=== PATIENT | female | born 1980 | race Caucasian/White ===

== ENCOUNTER 2017-04-21 08:09 | Emergency (ER) | payer BC, OTHER ==
[2017-04-21] MEDS ORDERED: Ketorolac Tromethamine 60 MG/2 ML VIAL ONE (09:19)
== END 2017-04-21 10:01 | disposition home or self-care (01) ==
LOC: ERS 08:09
DX: M25.511 Pain in right shoulder (principal); J45.909 Unspecified asthma, uncomplicated; F31.9 Bipolar disorder, unspecified; F41.9 Anxiety disorder, unspecified; F17.210 Nicotine dependence, cigarettes, uncomplicated; Z79.899 Other long term (current) drug therapy
CPT/HCPCS: 96372; J1885

== ENCOUNTER 2017-04-24 16:25 | Emergency (ER) | payer BC, OTHER ==
[2017-04-24] MEDS ORDERED: Ondansetron HCl/PF 4 MG/2 ML Vial ONE (16:56)
[2017-04-24 16:57] LABS: #Basophils 0.1 thou/uL (0.0-0.2); #Eosinphils 0.4 thou/uL (0.0-0.7); #Lymphocytes 2.2 thou/uL (1.20-3.40); #Monocytes 0.4 thou/uL (0.11-0.59); %Basophils 0.6 % (0.0-1.0); %Eosinophils 4.5 % (0.0-10.0); %Lymphocytes 24.1 % (21.0-51.0); %Monocytes 4.6 % (0.0-10.0); Hematocrit 44.1 % (36.0-47.0); Red Blood Cell (RBC) Count 4.62 mill/uL (4.20-5.40)
--- NOTE | 2017-04-24 17:17 | RAD ---
PORTABLE CHEST ONE VIEW: 04/24/17 at 4:25 p.m. HISTORY: Chest pain. FINDINGS: Comparison is made with the exam of 02/19/14. The heart size is normal. The lungs are expanded without focal areas of consolidation, pneumothorax or pleural effusions. IMPRESSION: No radiographic evidence of acute cardiopulmonary process. POS: [facility]
[2017-04-24 17:22] LABS: ALT (SGPT) 22 U/L (8-55); AST (SGOT) 19 U/L (5-34); Alkaline Phosphatase 82 U/L (40-150); Anion Gap 14 mmol/L (10-20); BUN (Urea Nitrogen) 16 mg/dL (7.0-18.7); Bilirubin, Total 0.3 mg/dL (0.2-1.2); CK (CPK) 45 U/L (29-168); Calc. Creatinine Clearance 0 mL/min (70-130); Calcium 9.4 mg/dL (7.8-10.44); Carbon Dioxide 21 mmol/L (22-29); Chloride 107 mmol/L (98-107); Estimated GFR-MDRD 65; Lipase 22 U/L (8-78); Troponin I Less than 0.010 ng/mL (< 0.028)
== END 2017-04-24 19:10 | disposition home or self-care (01) ==
LOC: ERS 16:25
DX: R07.89 Other chest pain (principal); F41.9 Anxiety disorder, unspecified; F31.9 Bipolar disorder, unspecified; F17.210 Nicotine dependence, cigarettes, uncomplicated; J45.909 Unspecified asthma, uncomplicated; Z79.51 Long term (current) use of inhaled steroids; Z79.52 Long term (current) use of systemic steroids; Z79.899 Other long term (current) drug therapy
CPT/HCPCS: 71010; 80053; 82550; 82553; 83690; 84484; 85025; 93005; 96374; J2405

== ENCOUNTER 2017-07-26 16:25 | Emergency (ER) | payer BC, OTHER ==
[2017-07-26 17:08] LABS: Bilirubin Negative (Negative); Blood, Urine Negative (Negative); Clarity TURBID (Clear); Glucose, Urine (Dipstick) Negative (Negative); Leukocyte Negative (Negative); Nitrite Negative (Negative); Protein, Urine (Dipstick) Negative (Neg-Trace); Specific Gravity, Urine 1.022 (1.002-1.036); Urobilinogen 0.2 mg/dL (0.2-1.0)
[2017-07-26 17:22] LABS: #Basophils 0.1 thou/uL (0.0-0.2); #Eosinphils 0.4 thou/uL (0.0-0.7); #Lymphocytes 2.2 thou/uL (1.20-3.40); #Monocytes 0.5 thou/uL (0.11-0.59); #Neutrophils 6.2 thou/uL (1.40-6.50); %Basophils 0.6 % (0.0-1.0); %Lymphocytes 23.6 % (21.0-51.0); %Monocytes 5.3 % (0.0-10.0); %Neutrophils 66.5 % (42.0-75.0); Hemoglobin 14.9 g/dL (12.0-16.0); Mean Corpuscular HGB CONC 34.7 g/dL (32.0-36.0); Mean Corpuscular Hemoglobin 33.3 pg (27.0-31.0); Mean Corpuscular Volume 95.9 fl (81.0-99.0); Mean Platelet Volume 8.5 fL (7.4-10.4); Platelet Count 178 thou/uL (130-400); Red Blood Cell (RBC) Count 4.48 mill/uL (4.20-5.40); White Blood Cell (WBC) Count 9.4 thou/uL (4.8-10.8)
[2017-07-26] MEDS ORDERED: ISOVUE-370 76%-LOCM 1 ML ONE (17:33)
[2017-07-26 17:47] LABS: ALT (SGPT) 17 U/L (8-55); AST (SGOT) 10 U/L (5-34); Albumin 4.2 g/dL (3.5-5.0); Alkaline Phosphatase 76 U/L (40-150); Anion Gap 12 mmol/L (10-20); BUN (Urea Nitrogen) 18 mg/dL (7.0-18.7); Bilirubin, Total 0.3 mg/dL (0.2-1.2); Calc. Creatinine Clearance 0 mL/min (70-130); Calcium 9.5 mg/dL (7.8-10.44); Carbon Dioxide 23 mmol/L (22-29); Chloride 106 mmol/L (98-107); Estimated GFR-MDRD 75; Globulin 2.7 g/dL (2.4-3.5); Glucose 91 mg/dL (70-105); Potassium 4.4 mmol/L (3.5-5.1); Protein, Total 6.9 g/dL (6.0-8.3); Sodium 137 mmol/L (136-145)
--- NOTE | 2017-07-26 20:59 | CT ---
CT ABDOMEN AND PELVIS WITH IV CONTRAST 07/26/17 HISTORY: Abdominal pain. Flank pain. Left worse than right. UTI symptoms. FINDINGS: comparison made with exam of 02/27/15. The lung bases are unremarkable. No calcified gallstones are seen. The spleen is mildly enlarged kip uring 13.7 cm in length. Surgical clip versus calcific density in the region of the left adrenal glan d is again seen. The spleen, pancreas, right adrenal gland and kidneys appear normal. No free air, fr ee fluid or lymphadenopathy is seen in the abdomen or pelvis. A normal appearing appendix is noted. A corpus luteal cyst is seen in the left kidney. The patient is post hysterectomy. Both ovaries are vi sualized. No acute osseous abnormalities are seen. There are vascular calcifications without evidence of aneurysmal dilatation or acute abdominal aorta. IMPRESSION: No acute process. POS: [facility]
== END 2017-07-26 19:58 | disposition home or self-care (01) ==
LOC: ERS 16:25
DX: M54.9 Dorsalgia, unspecified (principal); R10.32 Left lower quadrant pain; R11.2 Nausea with vomiting, unspecified; R19.7 Diarrhea, unspecified; F41.9 Anxiety disorder, unspecified; F31.9 Bipolar disorder, unspecified; F17.210 Nicotine dependence, cigarettes, uncomplicated
CPT/HCPCS: 36415; 74177; 80053; 81003; 83690; 85025

== ENCOUNTER 2017-08-10 13:25 | Emergency (ER) | payer BC, OTHER ==
[2017-08-10 13:50] LABS: #Eosinphils 0.3 thou/uL (0.0-0.7); #Lymphocytes 1.6 thou/uL (1.20-3.40); #Monocytes 0.3 thou/uL (0.11-0.59); #Neutrophils 4.1 thou/uL (1.40-6.50); %Basophils 0.5 % (0.0-1.0); %Eosinophils 4.7 % (0.0-10.0); %Lymphocytes 25.6 % (21.0-51.0); %Monocytes 4.7 % (0.0-10.0); %Neutrophils 64.4 % (42.0-75.0); Hemoglobin 15.1 g/dL (12.0-16.0); Mean Corpuscular HGB CONC 34.6 g/dL (32.0-36.0); Mean Corpuscular Hemoglobin 33.1 pg (27.0-31.0); Mean Corpuscular Volume 95.8 fl (81.0-99.0); Mean Platelet Volume 8.2 fL (7.4-10.4); Platelet Count 191 thou/uL (130-400); RBC Distribution Width 12.1 % (11.5-14.5); Red Blood Cell (RBC) Count 4.55 mill/uL (4.20-5.40); White Blood Cell (WBC) Count 6.3 thou/uL (4.8-10.8)
[2017-08-10] MEDS ORDERED: ISOVUE-370 76%-LOCM 1 ML ONE (14:03)
[2017-08-10 14:22] LABS: ALT (SGPT) 29 U/L (8-55); AST (SGOT) 14 U/L (5-34); Albumin 4.1 g/dL (3.5-5.0); Alkaline Phosphatase 68 U/L (40-150); Anion Gap 12 mmol/L (10-20); BUN (Urea Nitrogen) 8 mg/dL (7.0-18.7); Bilirubin, Total 0.4 mg/dL (0.2-1.2); Calc. Creatinine Clearance 0 mL/min (70-130); Calcium 9.5 mg/dL (7.8-10.44); Carbon Dioxide 21 mmol/L (22-29); Chloride 106 mmol/L (98-107); Estimated GFR-MDRD 67; Globulin 2.6 g/dL (2.4-3.5); Glucose 113 mg/dL (70-105); Lipase 16 U/L (8-78); Potassium 4.2 mmol/L (3.5-5.1); Protein, Total 6.7 g/dL (6.0-8.3); Sodium 135 mmol/L (136-145)
[2017-08-10 14:35] LABS: Bilirubin Negative (Negative); Blood, Urine Negative (Negative); Clarity CLEAR (Clear); Glucose, Urine (Dipstick) Negative (Negative); Leukocyte Negative (Negative); Nitrite Negative (Negative); Protein, Urine (Dipstick) Negative (Neg-Trace); Specific Gravity, Urine 1.007 (1.002-1.036); Urobilinogen 0.2 mg/dL (0.2-1.0)
[2017-08-10] MEDS ORDERED: Ondansetron HCl/PF 4 MG/2 ML Vial ONE (18:57)
--- NOTE | 2017-08-10 19:08 | CT ---
CT ABDOMEN AND PELVIS WITH IV CONTRAST 08/10/17 PROVIDED CLINICAL HISTORY: Abdominal pain. FINDINGS: Comparison is made with the study dated 07/26/17. The visualized lung bases are free of significant opacity. There is a trace amount of bilateral pleural fluid. The solid abdominal organs demonstrate an unremarkable CT appearance. There is mural thickening involving the right colon with surrounding mild fat stranding. The appendix appears normal. There is no bowel dilatation, additional inflammatory fat stranding, significant carmelita e fluid or free air apparent. The osseous structures demonstrate no concerning osteoblastic or osteolytic lesions. IMPRESSION: 1. Findings compatible with ascending/right sided colitis. 2. Trace bilateral pleural fluid. POS: [facility]
== END 2017-08-10 19:48 | disposition home or self-care (01) ==
LOC: ERS 13:25
DX: K52.9 Noninfective gastroenteritis and colitis, unspecified (principal); F41.9 Anxiety disorder, unspecified; F31.9 Bipolar disorder, unspecified; F17.210 Nicotine dependence, cigarettes, uncomplicated
CPT/HCPCS: 36415; 74177; 80053; 81003; 83690; 85025; 96361; 96372; 96374; J2405

== ENCOUNTER 2017-09-14 10:29 | Outpatient (CLI) | payer OTHER ==
--- NOTE | 2017-09-14 14:28 | ULT ---
COMPLETE ABDOMEN ULTRASOUND: INDICATIONS: Right-sided abdominal pain. COMPARISON: CT of the abdomen and pelvis, dated 08/10/2017. FINDINGS: The liver is mildly enlarged, measuring 18.7 cm in greatest longitudinal dimension. The spleen is al so mildly enlarged, measuring 14.2 cm. The spleen on the comparison CT measured up to 13.6 cm. The right hepatic lobe on the comparison examination, in a similar region, measured 19 cm. The pancreas is obscured by overlying bowel gas. The visualized portions of the head appear within n ormal limits. The common bile duct measured 3 mm. The gallbladder was normal appearing. No sonographic Rothman sign reported. The abdominal aorta was of a normal caliber. The visualized IVC was unremarkable. The right kidney measured 10 x 4.2 x 4.5 cm. The left kidney measured 10.8 x 4.4 x 4.8 cm. There is mild bilateral renal cortical thinning, with the cortex measuring up to 0.9 cm. No hydronephrosis i s evident. IMPRESSION: 1. Mild stable hepatosplenomegaly. 2. Mild bilateral renal cortical thinning, which may reflect sequela of underlying chronic medical r enal disease. 3. No additional acute sonographic abnormalities of the abdomen. POS: [facility]
== END 2017-09-14 10:30 | disposition home or self-care (01) ==
LOC: ULT 10:29
PROVIDERS: ATTEND Internal Medicine
DX: R10.31 Right lower quadrant pain (principal); R10.11 Right upper quadrant pain; R16.2 Hepatomegaly with splenomegaly, not elsewhere classified; N28.89 Other specified disorders of kidney and ureter
CPT/HCPCS: 76700

== ENCOUNTER 2017-09-24 10:35 | Outpatient (CLI) | payer OTHER ==
--- NOTE | 2017-09-24 15:40 | NM ---
NUCLEAR MEDICINE HIDA SCAN WITH EF: HISTORY: Epigastric pain. Right upper quadrant pain. COMPARISON: None. TECHNIQUE: The patient was administered 5.2 mCi of Technetium 99m mebrofenin intravenously. Gallbladder ejectio n fraction was determined after the patient was given 8 ounces of Ensure. FINDINGS: There is appropriate uptake of the radiotracer by the hepatic parenchyma. There is prompt excretion into the intrahepatic biliary system. There is passage of radiotracer from the common bile duct and the small bowel loops. There is localization of the radiotracer in the gallbladder fossa. Gallbladder ejection fraction is 45%. IMPRESSION: 1. No scintigraphic evidence of acute cholecystitis. 2. Gallbladder ejection fraction is 45%. POS: [facility]
== END 2017-09-24 10:36 | disposition home or self-care (01) ==
LOC: NM 10:35
PROVIDERS: ATTEND Internal Medicine
DX: R10.13 Epigastric pain (principal); R10.11 Right upper quadrant pain
CPT/HCPCS: 78227; A9537

== ENCOUNTER 2017-09-28 10:00 | Emergency (ER) | payer OTHER ==
[2017-09-28] MEDS ORDERED: Acetaminophen 500 MG TAB ONE (10:25)
[2017-09-28 10:55] LABS: Hemoglobin 14.2 g/dL (12.0-16.0); Mean Corpuscular HGB CONC 34.4 g/dL (32.0-36.0); Mean Corpuscular Hemoglobin 32.4 pg (27.0-31.0); Mean Corpuscular Volume 94.1 fl (81.0-99.0); RBC Distribution Width 11.3 % (11.5-14.5); Red Blood Cell (RBC) Count 4.39 mill/uL (4.20-5.40); White Blood Cell (WBC) Count 8.7 thou/uL (4.8-10.8)
[2017-09-28 11:15] LABS: #Eosinphils 0.1 thou/uL (0.0-0.7); #Monocytes 0.5 thou/uL (0.11-0.59); %Basophils 0.4 % (0.0-1.0); %Eosinophils 1.6 % (0.0-10.0); %Lymphocytes 11.8 % (21.0-51.0); %Monocytes 5.6 % (0.0-10.0); %Neutrophils 80.7 % (42.0-75.0); Anion Gap 10 mmol/L (10-20); BUN (Urea Nitrogen) 10 mg/dL (7.0-18.7); Carbon Dioxide 25 mmol/L (22-29); Chloride 105 mmol/L (98-107); Mean Platelet Volume 8.8 fL (7.4-10.4); PLT Morphology Comment Appears Decreased; Platelet Count 107 thou/uL (130-400); Potassium 3.9 mmol/L (3.5-5.1); Sodium 136 mmol/L (136-145)
[2017-09-28 11:16] LABS: ALT (SGPT) 38 U/L (8-55); AST (SGOT) 22 U/L (5-34); Albumin 3.8 g/dL (3.5-5.0); Alkaline Phosphatase 66 U/L (40-150); Bilirubin, Total 0.8 mg/dL (0.2-1.2); Calc. Creatinine Clearance 0 mL/min (70-130); Calcium 8.7 mg/dL (7.8-10.44); Estimated GFR-MDRD 78; Globulin 2.4 g/dL (2.4-3.5); Glucose 125 mg/dL (70-105); Protein, Total 6.2 g/dL (6.0-8.3)
[2017-09-28] MEDS ORDERED: Ondansetron ODT 4 MG TAB ONE (11:30)
[2017-09-28 13:38] LABS: Bilirubin Small (Negative); Blood, Urine Moderate (Negative); Clarity CLOUDY (Clear); Glucose, Urine (Dipstick) Negative (Negative); Leukocyte Moderate (Negative); Nitrite Negative (Negative); Protein, Urine (Dipstick) 30 mg/dL (Neg-Trace); pH, Urine 6.5 (5.0-9.0)
[2017-09-28 13:40] LABS: Pregnancy Test - Urine (BHCG) Negative (Negative); Pregu Control Background? CLEAR/WHITE (CLR/WHITE); Pregu Control Bar Appear? YES (CONTROL BAR)
[2017-09-28 13:47] LABS: Bacteria/HPF 1+ HPF (None Seen)
[2017-09-28 13:50] LABS: Pathc Cast-AUWi Flag 13.14 (0-2.49); Yeast-AUWi Flag 72.9 (0-25.0)
[2017-09-28 14:03] LABS: Hyaline Casts/LPF 4-6 HYALINE CAST LPF (0-3 Hyaline); Other Casts/LPF None Seen LPF (0-3 Hyaline)
[2017-09-28 14:04] LABS: RBC/HPF 0-3 HPF (0-3); Yeast-All Forms None Seen HPF (None Seen)
[2017-09-28] MEDS ORDERED: cefTRIAXone\\ROCEPHIN 2 GM in Sodium Chloride 0.9% 100 ML IVPB SCH (15:15)
== END 2017-09-28 16:44 | disposition home or self-care (01) ==
LOC: ERS 10:00
DX: N39.0 Urinary tract infection, site not specified (principal); M79.1 Myalgia; F41.9 Anxiety disorder, unspecified; F31.9 Bipolar disorder, unspecified; F17.210 Nicotine dependence, cigarettes, uncomplicated; Z79.899 Other long term (current) drug therapy
CPT/HCPCS: 36415; 80053; 81003; 81015; 81025; 83605; 85025; 87040; 87086; 96361; 96365; J0696; J7050; Q0162

== ENCOUNTER 2017-10-19 19:41 | Emergency (ER) | payer OTHER, SELFPAY ==
[2017-10-19] MEDS ORDERED: HYDROcodone/Acetaminophen 10/325 mg Tablet ONE (20:46)
--- NOTE | 2017-10-19 20:46 | RAD ---
RIGHT ANKLE THREE VIEWS 10/19/17 HISTORY: 37-year-old female with history of right ankle pain following a twisting injury. COMPARISON: 11/28/15. FINDINGS: Minimal lateral soft tissue swelling. No acute fracture or dislocation. IMPRESSION: Unremarkable right ankle. No fracture or dislocation. POS: [facility]
== END 2017-10-19 21:26 | disposition home or self-care (01) ==
LOC: ERS 19:41
DX: S93.401A Sprain of unspecified ligament of right ankle, initial encounter (principal); F41.9 Anxiety disorder, unspecified; F31.9 Bipolar disorder, unspecified; F17.210 Nicotine dependence, cigarettes, uncomplicated; Z79.899 Other long term (current) drug therapy; X50.1XXA Overexertion from prolonged static or awkward postures, initial encounter

== ENCOUNTER 2017-11-07 21:34 | Inpatient (IN) | payer OTHER, SELFPAY ==
[2017-11-07] MEDS ORDERED: Naloxone HCl 2 mg/2 ml Syringe ONE (21:59)
[2017-11-07] MEDS ORDERED: Ondansetron ODT 8 MG TAB ONE (21:59)
[2017-11-07 22:21] LABS: BHCG - Serum Negative (NEGATIVE); Pregs Control Background? CLEAR/WHITE (CLR/WHITE); Pregs Control Bar Appear? YES (CONTROL BAR)
[2017-11-07 22:22] LABS: Hemoglobin 17.1 g/dL (12.0-16.0); Mean Corpuscular HGB CONC 33.6 g/dL (32.0-36.0); Mean Corpuscular Volume 95.2 fl (81.0-99.0); Mean Platelet Volume 8.6 fL (7.4-10.4); Platelet Count 146 thou/uL (130-400); RBC Distribution Width 11.6 % (11.5-14.5); Red Blood Cell (RBC) Count 5.34 mill/uL (4.20-5.40); White Blood Cell (WBC) Count 12.2 thou/uL (4.8-10.8)
[2017-11-07] MEDS ORDERED: Acetaminophen 500 MG TAB ONE (22:22)
[2017-11-07 22:23] LABS: Acetaminophen Less than 6.0 mcg/mL (10.0-30.0); Alcohol Less than 10 mg/dL (Less than 10); Salicylate Less than 8.0 mg/dL (15.0-30.0)
[2017-11-07 22:25] LABS: ALT (SGPT) 16 U/L (8-55); AST (SGOT) 13 U/L (5-34); Albumin 4.3 g/dL (3.5-5.0); Alkaline Phosphatase 86 U/L (40-150); Anion Gap 13 mmol/L (10-20); BUN (Urea Nitrogen) 10 mg/dL (7.0-18.7); Bilirubin, Total 0.2 mg/dL (0.2-1.2); Calc. Creatinine Clearance 0 mL/min (70-130); Calcium 9.2 mg/dL (7.8-10.44); Carbon Dioxide 31 mmol/L (22-29); Chloride 103 mmol/L (98-107); Estimated GFR-MDRD 56; Globulin 2.7 g/dL (2.4-3.5); Glucose 103 mg/dL (70-105); Lipase 12 U/L (8-78); Potassium 4.3 mmol/L (3.5-5.1); Sodium 143 mmol/L (136-145)
[2017-11-07 22:33] LABS: Bilirubin Negative (Negative); Blood, Urine Trace (Negative); Clarity CLOUDY (Clear); Glucose, Urine (Dipstick) Negative (Negative); Leukocyte Moderate (Negative); Nitrite Negative (Negative); Protein, Urine (Dipstick) Negative (Neg-Trace); Specific Gravity, Urine 1.012 (1.002-1.036); Urobilinogen 0.2 mg/dL (0.2-1.0)
[2017-11-07 22:38] LABS: Bacteria/HPF None Seen HPF (None Seen); Hyaline Casts/LPF 7-10 HYALINE CAST LPF (0-3 Hyaline); Pathc Cast-AUWi Flag 0.29 (0-2.49); RBC/HPF 0-3 HPF (0-3); Squamous Epithelial None Seen HPF (0-3)
[2017-11-07 22:41] LABS: Thyroid Stimulating Hormone 0.6866 uIU/mL (0.35-4.94)
[2017-11-07 22:42] LABS: Amphetamine Not Detected (NotDetected); Barbiturates Screen Not Detected (NotDetected); Benzodiazepine Screen Not Detected (NotDetected); Cocaine Metabolite Screen Not Detected (NotDetected); Medtox Control Line Valid? VALID (VALID); Medtox Reader # READER 4; Methadone Not Detected (NotDetected); Methamphetamine Not Detected (NotDetected); Opiate Screen Detected (NotDetected); Oxycodone Screen Not Detected (NotDetected); Phencyclidine (PCP) Not Detected (NotDetected); THC/Cannabinoid Screen Not Detected (NotDetected); Tricyclic Screen Not Detected (NotDetected)
[2017-11-07 22:46] LABS: Band 9 % (5-11); Lymphocytes 13 % (21-51); MDiff Complete? YES; Monocytes 4 % (0-10); Neutrophil 74 % (42-75); PLT Morphology Comment Appears Adequate; RBC Morphology Normal
--- NOTE | 2017-11-07 22:54 | RAD ---
FRONTAL RADIOGRAPH CHEST: 11/07/2017 HISTORY: Fever. Malaise. FINDINGS: No pneumothorax, lobar consolidation, or alveolar edema. Mild increased linear density in the medial left base suggests vascular prominence. The cardiac silhouette may signify magnification and/or enl argement. IMPRESSION: No lobar consolidation or alveolar edema. POS: [facility]
[2017-11-08] MEDS ORDERED: hydrALAZINE 20 MG/ML VIAL SLOW IVP PRN (01:05)
[2017-11-08] MEDS ORDERED: Ondansetron HCl/PF 4 MG/2 ML Vial IVP PRN (01:05)
[2017-11-08] MEDS ORDERED: cloNIDine 0.1 MG TAB PO PRN (01:05)
[2017-11-08] MEDS: Sodium Chloride 0.9% 1,000 ML IV SCH ×3 (01:19→18:24)
[2017-11-08 01:47] VITALS: BMI 38.3
--- NOTE | 2017-11-08 01:50 | HP ---
DATE OF ADMISSION: 11/07/2017 PRIMARY CARE PHYSICIAN: Dr. Rankin. CHIEF COMPLAINT: Altered mental status and unresponsiveness. HISTORY OF PRESENT ILLNESS: This is a 37-year-old female who presents to [facility] apparently being found unresponsive, cold, clammy with altered [facility]. The history is obtained after review of electronic medical records in the emergency room and discussions with the ER attending, Dr. Lara. After presenting to the emergency room, patient was unable to provide any coherent history. However, it was reported by family members, patient was unresponsive during sleeping, but was suddenly vomiting in her sleeping, gasping for air. Patient pr esented via private vehicle at which point, patient's O2 saturation was noted at 84% on room air. Pa idalia was given oxygen supplementation underwent chest imaging showing no acute infiltrates. Patient with a significant history of fibromyalgia on current methadone treatment with urine drug screen pos itive for opiates. Patient received Narcan in the emergency room and was more alert and responsive. Patient was also noted with a fever up to 101.8 degrees Fahrenheit with urinalysis suspicious for in fectious process. Patient received IV Rocephin, acetaminophen, Zofran, Narcan, and intravenous irvin l saline x2 liters for resuscitation. Patient apparently tried no specific treatment at home for rel ief of her symptoms. Patient was notably evaluated in the emergency room in early 10/2017 for right ankle injury undergoing radiographs showing no acute fracture. Patient was given [facility], but no home prescription for [facility] during this visit. Patient has been referred to the Hospitalist Service for a dmission. PAST MEDICAL HISTORY: 1. Chronic pain syndrome on methadone. 2. Bipolar disorder. 3. Fibromyalgia. 4. History of urinary tract infections. 5. Question of cholelithiasis. 6. Tobacco abuse. PAST SURGICAL HISTORY: 1. Status post left adrenalectomy. 2. Status post hysterectomy. CURRENT MEDICATIONS: Based on previous admission in 2017, 1. Advair Diskus 2 puffs inhaled daily. 2. Zyrtec 10 mg p.o. daily. 3. ProAir HFA 2 puffs inhaled q.4-6 hours p.r.n. ALLERGIES: 1. LORAZEPAM. 2. RISPERIDONE. 3. SULFA. FAMILY HISTORY: No inheritable diseases per patient report and review of the electronic medical [address]. SOCIAL HISTORY: Smokes up to a pack of cigarettes daily. No alcohol or illicit drug use. REVIEW OF SYSTEMS: Unobtainable as patient with altered mentation and unable to provide a coherent h istory. PHYSICAL EXAMINATION: VITAL SIGNS: On admission, blood pressure 156/92, pulse 147, respiratory rate 22, temperature 101.8 degrees Fahrenheit, O2 saturation 88% on room air. GENERAL APPEARANCE: This is a 37-year-old female, lethargic, opens eyes to name and direct stimulus, slurred speech, and falls to sleep after 10-15 seconds. HEENT: Pupils are equal, round, and reactive to light and accommodation. Extraocular muscles are in tact. Bilateral conjunctival injection. Nares patent. OP is clear. Oral mucosa dry appearing. NECK: Supple, no cervical adenopathy, no thyromegaly, no carotid bruits, no JVD appreciated. Cervic al spine with full active and passive range of motion. No meningeal signs appreciated. CHEST: Lungs are clear to auscultation bilaterally. No rhonchi or wheezing. CARDIOVASCULAR: S1, S2 with tachycardia, distant heart sounds noted. No rub or gallop. ABDOMEN: Obese, soft, nontender, nondistended. Bowel sounds are positive in all four quadrants. Th ere is no hepatosplenomegaly, no abdominal bruits, no rebound or guarding appreciated. EXTREMITIES: Warm and dry with fair turgor. No clubbing, cyanosis, or asymmetric edema appreciated. Pulses palpable distally at the dorsalis pedis, posterior tibial, and popliteal arteries bilaterall y. Capillary refill less than 2 seconds. NEUROLOGIC: Alert and oriented x1. Lethargic, slurring speech, uncoordinated movements to command, not observed ambulatory during this exam. PERTINENT LABORATORY DATA AND X-RAY FINDINGS: Basic metabolic profile shows creatinine 1.10, estimat ed GFR 56, glucose 129, lactic acid level 3.2, calcium 9.2. LFTs within normal limits. TSH 0.69. S madeline beta hCG negative. CBC showed a white blood cell count 12.2, hemoglobin 17, hematocrit 51, plat elet count 146 with normal differential. Urinalysis showed trace blood, moderate leukocyte esterase with greater than 50 to too numerous to count wbc's per high power field. Urine drug screen dated positive for opiates. Plasma alcohol level less than 10. Portable chest x-ray dated 2017 showed no acute cardiopulmonary process. EKG dated 11/07/2017 by my interpretation shows sinus tachycardia with heart rates in the 140s. Attenuated R waves noted in the precordial leads. Normal axis. No acute ST-T wave changes appreciated. ASSESSMENT AND PLAN: 1. Sepsis. Patient will be placed on sepsis protocol. Initially managed in the emergency room with IV Rocephin 1 gram. We will continue intravenous normal saline at 125 mL per hour. Continue Roceph in 2 grams IV q.24 hours with additional vancomycin 1 gram IV q.12 hours. Urine and blood cultures p ending. Continue to trend lactic acid level. Current urinary source is suspected as underlying etio logy. 2. Urinary tract infection. See #1 above. Continue Rocephin 2 g IV q.24 hours. Urine culture pendi ng. 3. Acute metabolic encephalopathy. Suspect multifactorial including polypharmacy and narcotics as w ell as potential infectious process with urinary tract infection. Continue general supportive manage ment. 4. Narcotic overdose. Suspect methadone overdose after response to Narcan in the emergency departme nt. We will hold home regimen to include narcotics and monitor clinical response. 5. Bipolar disorder. Continue to monitor mental status as treatment for underlying infectious proce ss continues. 6. Prophylaxis. Sequential compression devices while in bed. Protonix 40 mg IV q.24 hours. PT romelia luation for functional assessment and ambulatory status. 7. Code status is FULL. Surrogate medical decision maker not identified.
[2017-11-08] MEDS: Vancomycin HCl 1 GM in Premix Bag 1 BAG IVPB SCH ×2 (02:56→15:00)
[2017-11-08 05:32] LABS: ALT (SGPT) 18 U/L (8-55); AST (SGOT) 12 U/L (5-34); Albumin 3.3 g/dL (3.5-5.0); Alkaline Phosphatase 63 U/L (40-150); Anion Gap 7 mmol/L (10-20); BUN (Urea Nitrogen) 9 mg/dL (7.0-18.7); Bilirubin, Total 0.3 mg/dL (0.2-1.2); Calc. Creatinine Clearance 139 mL/min (70-130); Calcium 8.3 mg/dL (7.8-10.44); Carbon Dioxide 30 mmol/L (22-29); Chloride 108 mmol/L (98-107); Estimated GFR-MDRD 80; Globulin 1.9 g/dL (2.4-3.5); Glucose 120 mg/dL (70-105); Potassium 4.6 mmol/L (3.5-5.1); Protein, Total 5.2 g/dL (6.0-8.3); Sodium 140 mmol/L (136-145)
[2017-11-08 06:05] LABS: Band 2 % (5-11); Hemoglobin 13.6 g/dL (12.0-16.0); Lymphocytes 20 % (21-51); MDiff Complete? YES; Mean Corpuscular HGB CONC 33.9 g/dL (32.0-36.0); Mean Corpuscular Hemoglobin 32.3 pg (27.0-31.0); Mean Corpuscular Volume 95.3 fl (81.0-99.0); Mean Platelet Volume 8.5 fL (7.4-10.4); Monocytes 3 % (0-10); Neutrophil 70 % (42-75); PLT Morphology Comment Appears Adequate; Platelet Count 152 thou/uL (130-400); RBC Distribution Width 11.5 % (11.5-14.5); RBC Morphology Normal; Reactive Lymphocytes 5 % (0-10); Red Blood Cell (RBC) Count 4.21 mill/uL (4.20-5.40); White Blood Cell (WBC) Count 8.8 thou/uL (4.8-10.8)
[2017-11-08] MEDS ORDERED: Pantoprazole 40 MG VIAL IVP SCH (09:00)
[2017-11-08] MEDS: Acetaminophen 500 MG TAB PO PRN (17:55)
[2017-11-08] MEDS: Famotidine 20 MG TAB PO SCH (20:42)
[2017-11-08] MEDS ORDERED: cefTRIAXone\\ROCEPHIN 2 GM in Sodium Chloride 0.9% 100 ML IVPB SCH (21:00)
[2017-11-09] MEDS: Ondansetron ODT 4 MG TAB PO PRN ×2 (00:41→09:36)
[2017-11-09] MEDS: Acetaminophen 500 MG TAB PO PRN ×3 (00:42→11:35)
[2017-11-09] MEDS: Sodium Chloride 0.9% 1,000 ML IV SCH ×3 (00:43→18:28)
[2017-11-09 05:32] LABS: Anion Gap 5 mmol/L (10-20); BUN (Urea Nitrogen) 10 mg/dL (7.0-18.7); BUN/Creatinine Ratio 15.38; Calc. Creatinine Clearance 174 mL/min (70-130); Carbon Dioxide 28 mmol/L (22-29); Chloride 110 mmol/L (98-107); Estimated GFR-MDRD Greater than 90; Glucose 89 mg/dL (70-105); Magnesium 1.7 mg/dL (1.6-2.6); Potassium 3.9 mmol/L (3.5-5.1); Sodium 139 mmol/L (136-145)
[2017-11-09 05:34] LABS: Phosphorus 1.8 mg/dL (2.3-4.7)
[2017-11-09 05:42] LABS: #Eosinphils 0.5 thou/uL (0.0-0.7); #Lymphocytes 0.9 thou/uL (1.20-3.40); #Monocytes 0.3 thou/uL (0.11-0.59); #Neutrophils 3.1 thou/uL (1.40-6.50); %Basophils 0.4 % (0.0-1.0); %Eosinophils 11.4 % (0.0-10.0); %Lymphocytes 18.7 % (21.0-51.0); %Monocytes 5.7 % (0.0-10.0); %Neutrophils 63.9 % (42.0-75.0); Hemoglobin 12.1 g/dL (12.0-16.0); Mean Corpuscular HGB CONC 34.6 g/dL (32.0-36.0); Mean Corpuscular Hemoglobin 32.8 pg (27.0-31.0); Mean Corpuscular Volume 94.6 fl (81.0-99.0); Mean Platelet Volume 8.9 fL (7.4-10.4); PLT Morphology Comment Appears Decreased; Platelet Count 96 thou/uL (130-400); RBC Distribution Width 11.3 % (11.5-14.5); White Blood Cell (WBC) Count 4.8 thou/uL (4.8-10.8)
[2017-11-09] MEDS: Famotidine 20 MG TAB PO SCH (09:36)
[2017-11-09] MEDS: K-Phos Neutral 250 MG TAB PO SCH ×3 (09:36→18:27)
[2017-11-09] MEDS ORDERED: Ondansetron HCl/PF 4 MG/2 ML Vial IVP PRN (12:46)
[2017-11-09 14:28] LABS: Hemoglobin 12.3 g/dL (12.0-16.0); Platelet Count 106 thou/uL (130-400)
[2017-11-09 17:53] VITALS: BP 162/92; TEMP 98.7
--- NOTE | 2017-11-10 10:14 | DIS ---
DATE OF DISCHARGE: 11/09/2017 DISCHARGE DISPOSITION: Home. FOLLOWUP: Follow up with primary care physician, Dr. Rankin in 1 week. The patient was seen and examined on the day of discharge. Denies any new complaints. Mental status back to normal. The patient is ambulating in the hallway. DISCHARGE MEDICATIONS: 1. Macrobid 100 mg b.i.d. for 1 week. 2. All other home medications were resumed. The patient was advised to take all of her medications as prescribed by her PCP and not to take any extra doses. Blood cultures were negative. Urine culture showed Citrobacter sensitive to Macrobid. Urine drug screen positive for opiates. Chest x-ray was negative for infiltrate. BRIEF HOSPITAL COURSE: The patient is a 37-year-old female with anxiety, depression, bipolar disorde r who presented to the hospital with altered mentation. She was found unresponsive, cold and clammy by her family member. She was also found to have O2 saturation of 84% on room air. Please refer to the history and physical dated 11/08/2017 for further details. The patient was admitted to the hospital with a diagnosis of toxic metabolic encephalopathy. The pat ient apparently took extra doses of Klonopin to help her sleep. She denied any suicidal ideation. S he was also found to have urinary tract infection secondary to Citrobacter. She was placed on IV ant ibiotics that has been changed to p.o. Fall precaution was emphasized. She will benefit from 24-carlotta r supervision. She was advised to take all of her medications as prescribed by her primary care phys sharon and not to take any extra dosages. FINAL DIAGNOSES: 1. Toxic metabolic encephalopathy secondary to polypharmacy. 2. Sepsis secondary to urinary tract infection. 3. Citrobacter urinary tract infection. 4. Anxiety, depression, bipolar disorder. Again, the patient denied any suicidal ideation. 5. Fibromyalgia. 6. Tobacco dependence. 7. Leukocytosis secondary to sepsis, resolved. 8. Thrombocytopenia with platelet of 106. A repeat CBC next week is recommended. 9. Hypophosphatemia with phosphorus 1.8, replaced. A repeat phosphorous next week is recommended. 10. Lactic acidosis of 3.2 on admission. Repeat lactic acid was 0.8. Lactic acidosis was probably from sepsis with dehydration. Plan of care was discussed with the patient and the family in detail. They stated understanding. Total time coordinating the discharge of this patient was 38 minutes.
== END 2017-11-09 18:40 | disposition home or self-care (01) | DRG 917 ==
LOC: ERS 21:34 → 2NO 23:45
PROVIDERS: ADMIT Family Medicine; ATTEND Family Medicine
DX: T42.4X1A Poisoning by benzodiazepines, accidental (unintentional), initial encounter (principal); A41.9 Sepsis, unspecified organism; G93.41 Metabolic encephalopathy; F31.9 Bipolar disorder, unspecified; D69.6 Thrombocytopenia, unspecified; E83.39 Other disorders of phosphorus metabolism; E87.2 Acidosis; N39.0 Urinary tract infection, site not specified; M79.7 Fibromyalgia; F11.99 Opioid use, unspecified with unspecified opioid-induced disorder; G89.4 Chronic pain syndrome; F17.210 Nicotine dependence, cigarettes, uncomplicated; Z79.51 Long term (current) use of inhaled steroids; Z88.2 Allergy status to sulfonamides; Z88.8 Allergy status to other drugs, medicaments and biological substances; B96.89 Other specified bacterial agents as the cause of diseases classified elsewhere; Y92.019 Unspecified place in single-family (private) house as the place of occurrence of the external cause; E86.0 Dehydration
CPT/HCPCS: 36415; 36416; 51701; 71045; 80053; 80069; 80306; 80307; 81003; 81015; 83605; 83690; 83735; 84443; 84703; 85007; 85025; 85027; 87040; 87077; 87086; 87186; 93005; 94760; 96361; 96374; 96375; A4216; C9113; J0360; J0696; J2310; J3370; J7050; Q0162

== ENCOUNTER 2017-11-11 11:39 | Emergency (ER) | payer OTHER, SELFPAY ==
[2017-11-11] MEDS ORDERED: Ketorolac Tromethamine 60 MG/2 ML VIAL ONE (15:46)
[2017-11-11] MEDS ORDERED: Metoclopramide HCl 10 MG TAB ONE (16:56)
== END 2017-11-11 17:41 | disposition home or self-care (01) ==
LOC: ERS 11:39
DX: R51 Headache (principal); F31.9 Bipolar disorder, unspecified; F41.9 Anxiety disorder, unspecified; G43.909 Migraine, unspecified, not intractable, without status migrainosus; F17.210 Nicotine dependence, cigarettes, uncomplicated; Z79.899 Other long term (current) drug therapy
CPT/HCPCS: 96372; J1885

== ENCOUNTER 2018-01-13 09:44 | Emergency (ER) | payer OTHER, SELFPAY ==
[2018-01-13] MEDS ORDERED: Ketorolac Tromethamine 60 MG/2 ML VIAL ONE ×2 (11:43→11:48)
== END 2018-01-13 12:35 | disposition home or self-care (01) ==
LOC: ERS 09:44
DX: M79.7 Fibromyalgia (principal); F41.9 Anxiety disorder, unspecified; F32.9 Major depressive disorder, single episode, unspecified; F17.210 Nicotine dependence, cigarettes, uncomplicated; F29 Unspecified psychosis not due to a substance or known physiological condition; Z71.6 Tobacco abuse counseling; Z79.899 Other long term (current) drug therapy
CPT/HCPCS: 96372; J1885

== ENCOUNTER 2018-02-13 11:05 | Emergency (ER) | payer SELFPAY ==
[2018-02-13] MEDS ORDERED: Ketorolac Tromethamine 60 MG/2 ML VIAL ONE (12:46)
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
--- NOTE | 2018-02-13 15:28 | RAD ---
RIGHT ANKLE THREE VIEWS: History: 37-year-old female with history of pain involving the right knee, lower leg, and ankle. Comparison: 10-19-17 FINDINGS/IMPRESSION: No fracture, dislocation, or other significant acute osseous abnormality. POS: [facility]
== END 2018-02-13 13:32 | disposition home or self-care (01) ==
LOC: ERS 11:05
DX: M25.561 Pain in right knee (principal); F41.9 Anxiety disorder, unspecified; F32.9 Major depressive disorder, single episode, unspecified; F17.210 Nicotine dependence, cigarettes, uncomplicated; Z79.899 Other long term (current) drug therapy; X50.1XXA Overexertion from prolonged static or awkward postures, initial encounter
CPT/HCPCS: 96372; J1885

== ENCOUNTER 2018-04-14 08:56 | Emergency (ER) | payer SELFPAY ==
[2018-04-14 09:31] LABS: #Eosinphils 0.3 thou/uL (0.0-0.7); #Lymphocytes 1.9 thou/uL (1.20-3.40); #Monocytes 0.5 thou/uL (0.11-0.59); #Neutrophils 5.8 thou/uL (1.40-6.50); %Basophils 0.5 % (0.0-1.0); %Eosinophils 3.2 % (0.0-10.0); %Lymphocytes 21.8 % (21.0-51.0); %Monocytes 5.7 % (0.0-10.0); %Neutrophils 68.9 % (42.0-75.0); Hemoglobin 15.4 g/dL (12.0-16.0); Mean Corpuscular HGB CONC 33.9 g/dL (32.0-36.0); Mean Corpuscular Hemoglobin 31.6 pg (27.0-31.0); Mean Platelet Volume 8.6 fL (7.4-10.4); Platelet Count 158 thou/uL (130-400); RBC Distribution Width 12.4 % (11.5-14.5); Red Blood Cell (RBC) Count 4.88 mill/uL (4.20-5.40); White Blood Cell (WBC) Count 8.5 thou/uL (4.8-10.8)
[2018-04-14] MEDS ORDERED: Ketorolac Tromethamine 30 MG/ML VIAL ONE (09:39)
[2018-04-14 09:54] LABS: ALT (SGPT) 23 U/L (8-55); AST (SGOT) 14 U/L (5-34); Albumin 4.3 g/dL (3.5-5.0); Alkaline Phosphatase 87 U/L (40-150); Anion Gap 12 mmol/L (10-20); BUN (Urea Nitrogen) 13 mg/dL (7.0-18.7); Bilirubin, Total 0.3 mg/dL (0.2-1.2); CK (CPK) 28 U/L (29-168); Calc. Creatinine Clearance 0 mL/min (70-130); Calcium 9.1 mg/dL (7.8-10.44); Carbon Dioxide 23 mmol/L (22-29); Chloride 106 mmol/L (98-107); Estimated GFR-MDRD 71; Globulin 2.8 g/dL (2.4-3.5); Glucose 90 mg/dL (70-105); Potassium 3.9 mmol/L (3.5-5.1); Protein, Total 7.1 g/dL (6.0-8.3); Sodium 137 mmol/L (136-145)
[2018-04-14 09:56] LABS: CKMB 0.5 ng/mL (0-6.6); Troponin I Less than 0.010 ng/mL (< 0.028)
--- NOTE | 2018-04-14 10:01 | RAD ---
PORTABLE AP CHEST RADIOGRAPH: DATE: 04-14-18 History: Left sided chest pain, pain beneath the left breast. Comparison: 08-30-17 FINDINGS: Cardiac silhouette is magnified by projection but stable compared to prior study. Pulmonary vasculatu re is within normal limits. Lungs are clear. There has been no interval change from the prior exam. IMPRESSION: No acute cardiopulmonary process. POS: [facility]
--- NOTE | 2018-04-14 11:20 | CT ---
CT PULMONARY ANGIOGRAM WITH IV CONTRAST AND 3D POST PROCESSING: HISTORY: A 38-year-old female with chest pain. FINDINGS: No filling defects are seen in the pulmonary arterial vasculature, to suggest pulmonary embolism. Th e thoracic aorta is well opacified without aneurysmal dissection. No pleural or pericardial effusion s are seen. No pneumothoraces or lobar consolidation is seen. There is a 7 mm nodule in the right u pper lobe. No acute osseous abnormalities are seen. IMPRESSION: 1. No CT evidence of pulmonary embolism. 2. A 7 mm right upper lobe lung nodule. A follow-up CT scan of the chest without contrast is recommended in six months. CODE LN CODE T POS: [facility]
[2018-04-14] MEDS ORDERED: ISOVUE-370 76%-LOCM 1 ML ONE (14:50)
== END 2018-04-14 11:38 | disposition home or self-care (01) ==
LOC: ERS 08:56
DX: R91.1 Solitary pulmonary nodule (principal); R07.9 Chest pain, unspecified; M54.9 Dorsalgia, unspecified; F41.9 Anxiety disorder, unspecified; F32.9 Major depressive disorder, single episode, unspecified; F17.210 Nicotine dependence, cigarettes, uncomplicated; Z79.899 Other long term (current) drug therapy
CPT/HCPCS: 71045; 71275; 80053; 82553; 83690; 84484; 85025; 85379; 93005; 96374; J1885

== ENCOUNTER 2018-06-06 11:02 | Emergency (ER) | payer OTHER, SELFPAY ==
[2018-06-06] MEDS ORDERED: Cyclobenzaprine 10 MG TAB ONE (11:56)
[2018-06-06 12:58] LABS: Bilirubin Small (Negative); Blood, Urine Negative (Negative); Clarity CLOUDY (Clear); Glucose, Urine (Dipstick) Negative (Negative); Leukocyte Trace (Negative); Nitrite Negative (Negative); Protein, Urine (Dipstick) Negative (Neg-Trace); Specific Gravity, Urine 1.024 (1.002-1.036); Urobilinogen 0.2 mg/dL (0.2-1.0); pH, Urine 5.5 (5.0-9.0)
[2018-06-06 13:02] LABS: Bacteria/HPF Rare-Few HPF (None Seen); Hyaline Casts/LPF 4-6 HYALINE CAST LPF (0-3 Hyaline); RBC/HPF 0-3 HPF (0-3); WBC/HPF 0-3 HPF (0-3)
[2018-06-06 13:16] LABS: Crystals/HPF 1+ CA OXALATE HPF (Negative)
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
--- NOTE | 2018-06-06 15:30 | RAD ---
THREE VIEW LUMBAR SPINE SERIES: Indication: Low back pain. Comparison: 11-21-14 FINDINGS: There is no compression fracture or subluxation. There are minimal endplate osteophytes seen. IMPRESSION: No acute osseous abnormality of the lumbar spine. POS: [facility]
== END 2018-06-06 14:03 | disposition home or self-care (01) ==
LOC: ERS 11:02
DX: M54.5 Low back pain (principal); M54.2 Cervicalgia; N39.0 Urinary tract infection, site not specified; J45.909 Unspecified asthma, uncomplicated; F41.9 Anxiety disorder, unspecified; F17.210 Nicotine dependence, cigarettes, uncomplicated; V89.2XXA Person injured in unspecified motor-vehicle accident, traffic, initial encounter; W22.19XA Striking against or struck by other automobile airbag, initial encounter
CPT/HCPCS: 51798; 70450; 72100; 72125; 81003; 81015; 87086

== ENCOUNTER 2018-06-25 10:46 | Emergency (ER) | payer OTHER, SELFPAY ==
[2018-06-25] MEDS ORDERED: Bupivacaine 0.5% 10 ML VIAL ONE (11:08)
== END 2018-06-25 11:29 | disposition home or self-care (01) ==
LOC: ERS 10:46
DX: K03.81 Cracked tooth (principal); F41.9 Anxiety disorder, unspecified; F32.9 Major depressive disorder, single episode, unspecified; F17.210 Nicotine dependence, cigarettes, uncomplicated; F29 Unspecified psychosis not due to a substance or known physiological condition; J45.909 Unspecified asthma, uncomplicated; Z79.899 Other long term (current) drug therapy
CPT/HCPCS: 99282; J3490

== ENCOUNTER 2018-07-27 17:35 | Emergency (ER) | payer SELFPAY ==
[2018-07-27 18:02] LABS: Bilirubin Negative (Negative); Blood, Urine Negative (Negative); Clarity CLOUDY (Clear); Glucose, Urine (Dipstick) Negative (Negative); Leukocyte Small (Negative); Nitrite Positive (Negative); Protein, Urine (Dipstick) Negative (Neg-Trace); Specific Gravity, Urine 1.024 (1.002-1.036); Urobilinogen 0.2 mg/dL (0.2-1.0); pH, Urine 5.5 (5.0-9.0)
[2018-07-27 18:05] LABS: #Basophils 0.1 thou/uL (0.0-0.2); #Eosinphils 0.5 thou/uL (0.0-0.7); #Lymphocytes 2.4 thou/uL (1.20-3.40); #Monocytes 0.5 thou/uL (0.11-0.59); #Neutrophils 4.5 thou/uL (1.40-6.50); %Basophils 1.1 % (0.0-1.0); %Lymphocytes 29.8 % (21.0-51.0); %Monocytes 5.8 % (0.0-10.0); %Neutrophils 57.4 % (42.0-75.0); Hemoglobin 15.2 g/dL (12.0-16.0); Mean Corpuscular HGB CONC 34.3 g/dL (32.0-36.0); Mean Corpuscular Hemoglobin 31.9 pg (27.0-31.0); Mean Corpuscular Volume 92.9 fL (78.0-98.0); Mean Platelet Volume 9.2 fL (7.4-10.4); Platelet Count 191 thou/uL (130-400); RBC Distribution Width 11.5 % (11.5-14.5); Red Blood Cell (RBC) Count 4.76 mill/uL (4.20-5.40); White Blood Cell (WBC) Count 7.9 thou/uL (4.8-10.8)
[2018-07-27 18:08] LABS: Pregnancy Test - Urine (BHCG) Negative (Negative); Pregu Control Background? CLEAR/WHITE (CLR/WHITE); Pregu Control Bar Appear? YES (CONTROL BAR); Specific Gravity 1.024 (1.002-1.036)
[2018-07-27 18:20] LABS: Bacteria/HPF Rare-Few HPF (None Seen); Hyaline Casts/LPF 0-3 HYALINE CAST LPF (0-3 Hyaline); RBC/HPF None Seen HPF (0-3); Squamous Epithelial 0-3 HPF (0-3); WBC/HPF 0-3 HPF (0-3)
[2018-07-27 18:30] LABS: ALT (SGPT) 16 U/L (8-55); AST (SGOT) 10 U/L (5-34); Albumin 4.3 g/dL (3.5-5.0); Alkaline Phosphatase 82 U/L (40-150); Anion Gap 13 mmol/L (10-20); BUN (Urea Nitrogen) 15 mg/dL (7.0-18.7); Bilirubin, Total 0.4 mg/dL (0.2-1.2); Calc. Creatinine Clearance 0 mL/min (70-130); Carbon Dioxide 25 mmol/L (22-29); Chloride 106 mmol/L (98-107); Estimated GFR-MDRD 51; Globulin 2.7 g/dL (2.4-3.5); Glucose 110 mg/dL (70-105); Lipase 23 U/L (8-78); Sodium 140 mmol/L (136-145)
== END 2018-07-27 20:20 | disposition left against medical advice (07) ==
LOC: ERS 17:35
DX: Z53.21 Procedure and treatment not carried out due to patient leaving prior to being seen by health care provider (principal)
CPT/HCPCS: 36415; 80053; 81003; 81015; 81025; 83690; 85025

== ENCOUNTER 2018-08-03 07:54 | Emergency (ER) | payer MEDICAID, SELFPAY ==
--- NOTE | 2018-08-03 08:39 | RAD ---
RIGHT SHOULDER 3 VIEWS: HISTORY: Right shoulder pain. Injury. FINDINGS: Acromioclavicular and glenohumeral alignment are maintained. No acute fracture or dislocation. IMPRESSION: No acute osseous abnormalities are demonstrated. POS: [facility]
== END 2018-08-03 08:45 | disposition home or self-care (01) ==
LOC: ERS 07:54
DX: S40.011A Contusion of right shoulder, initial encounter (principal); J45.909 Unspecified asthma, uncomplicated; F41.9 Anxiety disorder, unspecified; F32.9 Major depressive disorder, single episode, unspecified; F17.210 Nicotine dependence, cigarettes, uncomplicated; Z79.899 Other long term (current) drug therapy; W19.XXXA Unspecified fall, initial encounter

== ENCOUNTER 2018-08-09 19:41 | Emergency (ER) | payer MEDICAID, SELFPAY ==
[~2018-08-09 19:41] MED LIST: ISOVUE-370 76%-LOCM 1 ML ONE
[2018-08-09] MEDS ORDERED: Ketorolac Tromethamine 30 MG/ML VIAL ONE (21:13)
[2018-08-09 21:30] LABS: #Eosinphils 0.2 thou/uL (0.0-0.7); #Lymphocytes 1.7 thou/uL (1.20-3.40); #Monocytes 0.3 thou/uL (0.11-0.59); #Neutrophils 4.5 thou/uL (1.40-6.50); %Basophils 0.5 % (0.0-1.0); %Eosinophils 3.5 % (0.0-10.0); %Lymphocytes 24.9 % (21.0-51.0); %Monocytes 3.7 % (0.0-10.0); %Neutrophils 67.4 % (42.0-75.0); Hemoglobin 13.9 g/dL (12.0-16.0); Mean Corpuscular Hemoglobin 31.6 pg (27.0-31.0); Mean Corpuscular Volume 93.2 fL (78.0-98.0); Mean Platelet Volume 8.8 fL (7.4-10.4); Platelet Count 165 thou/uL (130-400); RBC Distribution Width 11.5 % (11.5-14.5); Red Blood Cell (RBC) Count 4.41 mill/uL (4.20-5.40); White Blood Cell (WBC) Count 6.6 thou/uL (4.8-10.8)
[2018-08-09 21:51] LABS: ALT (SGPT) 26 U/L (8-55); AST (SGOT) 10 U/L (5-34); Albumin 3.5 g/dL (3.5-5.0); Alkaline Phosphatase 82 U/L (40-150); Anion Gap 11 mmol/L (10-20); BUN (Urea Nitrogen) 12 mg/dL (7.0-18.7); Bilirubin, Total 0.2 mg/dL (0.2-1.2); Calc. Creatinine Clearance 0 mL/min (70-130); Calcium 8.7 mg/dL (7.8-10.44); Carbon Dioxide 22 mmol/L (22-29); Chloride 108 mmol/L (98-107); Estimated GFR-MDRD 67; Globulin 2.2 g/dL (2.4-3.5); Glucose 126 mg/dL (70-105); Potassium 3.8 mmol/L (3.5-5.1); Protein, Total 5.7 g/dL (6.0-8.3); Sodium 137 mmol/L (136-145)
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
== END 2018-08-09 22:42 | disposition home or self-care (01) ==
LOC: ERS 19:41
DX: K04.7 Periapical abscess without sinus (principal); F41.9 Anxiety disorder, unspecified; F32.9 Major depressive disorder, single episode, unspecified; J45.909 Unspecified asthma, uncomplicated; F17.210 Nicotine dependence, cigarettes, uncomplicated; Z79.899 Other long term (current) drug therapy
CPT/HCPCS: 36415; 70487; 80053; 85025; 96374; J1885

== ENCOUNTER 2018-09-29 18:38 | Emergency (ER) | payer MEDICAID, SELFPAY ==
[2018-09-29] MEDS ORDERED: Ketorolac Tromethamine 60 MG/2 ML VIAL ONE (19:13)
--- NOTE | 2018-09-29 19:45 | RAD ---
PA AND LATERAL CHEST X-RAY 09/29/18 HISTORY: Increasing pain and swelling bilateral lower extremities. Nausea and vomiting. Headache. COMPARISON: 09/08/15. FINDINGS: The cardiac silhouette and pulmonary vasculature are within normal limits. The lungs are clear. There has been no interval change from prior study. IMPRESSION: No acute cardiopulmonary process. POS: [facility]
[2018-09-29 19:47] LABS: #Eosinphils 0.3 thou/uL (0.0-0.7); #Lymphocytes 1.6 thou/uL (1.20-3.40); #Monocytes 0.3 thou/uL (0.11-0.59); #Neutrophils 2.2 thou/uL (1.40-6.50); %Basophils 0.9 % (0.0-1.0); %Eosinophils 7.5 % (0.0-10.0); %Lymphocytes 34.9 % (21.0-51.0); %Monocytes 7.3 % (0.0-10.0); %Neutrophils 49.5 % (42.0-75.0); Hemoglobin 13.6 g/dL (12.0-16.0); Mean Corpuscular HGB CONC 34.4 g/dL (32.0-36.0); Mean Corpuscular Hemoglobin 32.1 pg (27.0-31.0); Mean Corpuscular Volume 93.5 fL (78.0-98.0); Mean Platelet Volume 8.9 fL (7.4-10.4); Platelet Count 158 thou/uL (130-400); RBC Distribution Width 11.6 % (11.5-14.5); Red Blood Cell (RBC) Count 4.24 mill/uL (4.20-5.40); White Blood Cell (WBC) Count 4.5 thou/uL (4.8-10.8)
[2018-09-29 20:06] LABS: Bilirubin Small (Negative); Blood, Urine Negative (Negative); Clarity CLEAR (Clear); Glucose, Urine (Dipstick) Negative (Negative); Leukocyte Negative (Negative); Nitrite Negative (Negative); Protein, Urine (Dipstick) Negative (Neg-Trace); Specific Gravity, Urine 1.021 (1.002-1.036); pH, Urine 5.5 (5.0-9.0)
[2018-09-29 20:08] LABS: ALT (SGPT) 39 U/L (8-55); AST (SGOT) 21 U/L (5-34); Albumin 3.4 g/dL (3.5-5.0); Alkaline Phosphatase 74 U/L (40-150); Anion Gap 10 mmol/L (10-20); BUN (Urea Nitrogen) 8 mg/dL (7.0-18.7); Bilirubin, Total 0.2 mg/dL (0.2-1.2); CK (CPK) 111 U/L (29-168); Calc. Creatinine Clearance 0 mL/min (70-130); Calcium 8.8 mg/dL (7.8-10.44); Carbon Dioxide 30 mmol/L (22-29); Chloride 103 mmol/L (98-107); Estimated GFR-MDRD 56; Globulin 2.4 g/dL (2.4-3.5); Glucose 103 mg/dL (70-105); Potassium 3.8 mmol/L (3.5-5.1); Protein, Total 5.8 g/dL (6.0-8.3); Sodium 139 mmol/L (136-145)
--- NOTE | 2018-09-30 12:32 | EKG ---
Test Reason : Blood Pressure : / mmHG Vent. Rate : 095 BPM Atrial Rate : 095 BPM P-R Int : 162 ms QRS Dur : 090 ms QT Int : 354 ms P-R-T Axes : 016 049 025 degrees QTc Int : 444 ms Normal sinus rhythm Abnormal ECG Delayed precordial transition Confirmed by LAWRENCE ALATORRE DO ([id number]), editor magazine FREDDY HUTCHINSON ([id number]) on 09/30/2018 12:32:24 PM Referred By: PRINCE Confirmed By:LAWRENCE ALATORRE DO
== END 2018-09-29 20:50 | disposition home or self-care (01) ==
LOC: ERS 18:38
DX: M79.89 Other specified soft tissue disorders (principal); J45.909 Unspecified asthma, uncomplicated; F41.9 Anxiety disorder, unspecified; F32.9 Major depressive disorder, single episode, unspecified; F17.210 Nicotine dependence, cigarettes, uncomplicated; Z79.1 Long term (current) use of non-steroidal anti-inflammatories (NSAID); Z79.899 Other long term (current) drug therapy
CPT/HCPCS: 36415; 71046; 80053; 81003; 82550; 85025; 93005; 96372; J1885

== ENCOUNTER 2018-10-04 13:25 | Emergency (ER) | payer SELFPAY ==
[2018-10-04 14:15] LABS: Bilirubin Negative (Negative); Blood, Urine Negative (Negative); Clarity CLEAR (Clear); Glucose, Urine (Dipstick) Negative (Negative); Leukocyte Negative (Negative); Nitrite Negative (Negative); Protein, Urine (Dipstick) Negative (Neg-Trace); Specific Gravity, Urine 1.018 (1.002-1.036); Urobilinogen 0.2 mg/dL (0.2-1.0); pH, Urine 5.5 (5.0-9.0)
[2018-10-04] MEDS ORDERED: Ketorolac Tromethamine 60 MG/2 ML VIAL ONE (15:46)
== END 2018-10-04 16:10 | disposition home or self-care (01) ==
LOC: ERS 13:25
DX: M54.5 Low back pain (principal); J06.9 Acute upper respiratory infection, unspecified; J45.909 Unspecified asthma, uncomplicated; F41.9 Anxiety disorder, unspecified; F32.9 Major depressive disorder, single episode, unspecified; F17.210 Nicotine dependence, cigarettes, uncomplicated; Z79.899 Other long term (current) drug therapy; Z79.1 Long term (current) use of non-steroidal anti-inflammatories (NSAID)
CPT/HCPCS: 81003; 87081; 87430; 96372; J1885

== ENCOUNTER 2018-11-08 13:27 | Emergency (ER) | payer SELFPAY ==
[2018-11-08 14:54] LABS: #Eosinphils 0.1 thou/uL (0.0-0.7); #Lymphocytes 0.7 thou/uL (1.20-3.40); #Monocytes 0.3 thou/uL (0.11-0.59); #Neutrophils 2.4 thou/uL (1.40-6.50); %Basophils 0.5 % (0.0-1.0); %Eosinophils 2.7 % (0.0-10.0); %Lymphocytes 20.7 % (21.0-51.0); %Monocytes 7.4 % (0.0-10.0); %Neutrophils 68.8 % (42.0-75.0); Mean Corpuscular HGB CONC 33.7 g/dL (32.0-36.0); Mean Corpuscular Hemoglobin 31.5 pg (27.0-31.0); Mean Corpuscular Volume 93.5 fL (78.0-98.0); Mean Platelet Volume 8.4 fL (7.4-10.4); Platelet Count 130 thou/uL (130-400); RBC Distribution Width 11.6 % (11.5-14.5); Red Blood Cell (RBC) Count 4.45 mill/uL (4.20-5.40); White Blood Cell (WBC) Count 3.5 thou/uL (4.8-10.8)
[2018-11-08 15:03] LABS: Bilirubin Negative (Negative); Blood, Urine Negative (Negative); Clarity CLEAR (Clear); Glucose, Urine (Dipstick) Negative (Negative); Leukocyte Negative (Negative); Nitrite Negative (Negative); Protein, Urine (Dipstick) Negative (Neg-Trace); Specific Gravity, Urine 1.022 (1.002-1.036)
[2018-11-08 15:12] LABS: ALT (SGPT) 34 U/L (8-55); AST (SGOT) 21 U/L (5-34); Albumin 3.9 g/dL (3.5-5.0); Alkaline Phosphatase 71 U/L (40-150); Anion Gap 10 mmol/L (10-20); BUN (Urea Nitrogen) 15 mg/dL (7.0-18.7); Bilirubin, Total 0.5 mg/dL (0.2-1.2); Calc. Creatinine Clearance 0 mL/min (70-130); Carbon Dioxide 27 mmol/L (22-29); Chloride 105 mmol/L (98-107); Estimated GFR-MDRD 60; Globulin 2.4 g/dL (2.4-3.5); Glucose 93 mg/dL (70-105); Lipase 7 U/L (8-78); Potassium 4.2 mmol/L (3.5-5.1); Protein, Total 6.3 g/dL (6.0-8.3); Sodium 138 mmol/L (136-145)
[2018-11-08] MEDS ORDERED: Ondansetron ODT 4 MG TAB ONE (17:13)
[2018-11-08] MEDS ORDERED: Acetaminophen 500 MG TAB ONE (17:13)
== END 2018-11-08 18:29 | disposition left against medical advice (07) ==
LOC: ERS 13:27
DX: R11.0 Nausea (principal); R50.9 Fever, unspecified; R05 Cough; J02.9 Acute pharyngitis, unspecified; J45.909 Unspecified asthma, uncomplicated; R10.9 Unspecified abdominal pain; F17.210 Nicotine dependence, cigarettes, uncomplicated; Z79.899 Other long term (current) drug therapy
CPT/HCPCS: 36415; 80053; 81003; 83690; 85025; 87804; 99283; Q0162

== ENCOUNTER 2019-01-22 09:57 | Emergency (ER) | payer SELFPAY ==
[2019-01-22 10:19] LABS: #Eosinphils 0.2 thou/uL (0.0-0.7); #Lymphocytes 1.9 thou/uL (1.20-3.40); #Monocytes 0.4 thou/uL (0.11-0.59); #Neutrophils 5.5 thou/uL (1.40-6.50); %Basophils 0.6 % (0.0-1.0); %Eosinophils 2.3 % (0.0-10.0); %Lymphocytes 23.4 % (21.0-51.0); %Monocytes 5.3 % (0.0-10.0); %Neutrophils 68.4 % (42.0-75.0); Mean Corpuscular HGB CONC 35.4 g/dL (32.0-36.0); Mean Corpuscular Hemoglobin 32.5 pg (27.0-31.0); Mean Corpuscular Volume 91.7 fL (78.0-98.0); Mean Platelet Volume 8.5 fL (7.4-10.4); Platelet Count 214 thou/uL (130-400); Red Blood Cell (RBC) Count 4.94 mill/uL (4.20-5.40)
[2019-01-22 10:25] LABS: Bacteria/HPF 1+ HPF (None Seen); Bilirubin Negative (Negative); Blood, Urine 1+ (Negative); Calcium Oxalate Crystals 3+ HPF (None Seen); Clarity Turbid (Clear); Glucose, Urine (Dipstick) Normal (Negative); Leukocyte 25 Leu/uL (Negative); Nitrite Negative (Negative); Protein, Urine (Dipstick) 30 mg/dL (Neg-Trace); Yeast-Budding 1+ HPF (None Seen)
[2019-01-22 10:36] LABS: Pregnancy Test - Urine (BHCG) Negative (Negative); Pregu Control Background? CLEAR/WHITE (CLR/WHITE); Pregu Control Bar Appear? YES (CONTROL BAR)
[2019-01-22 10:40] LABS: ALT (SGPT) 14 U/L (8-55); AST (SGOT) 11 U/L (5-34); Albumin 4.6 g/dL (3.5-5.0); Alkaline Phosphatase 88 U/L (40-150); Anion Gap 13 mmol/L (10-20); BUN (Urea Nitrogen) 15 mg/dL (7.0-18.7); Bilirubin, Total 0.6 mg/dL (0.2-1.2); Calc. Creatinine Clearance 0 mL/min (70-130); Calcium 9.5 mg/dL (7.8-10.44); Carbon Dioxide 23 mmol/L (22-29); Chloride 104 mmol/L (98-107); Estimated GFR-MDRD 63; Globulin 2.8 g/dL (2.4-3.5); Glucose 110 mg/dL (70-105); Lipase 24 U/L (8-78); Potassium 3.5 mmol/L (3.5-5.1); Protein, Total 7.4 g/dL (6.0-8.3); Sodium 136 mmol/L (136-145)
[2019-01-22] MEDS ORDERED: Ondansetron PF 4 MG/2 ML Vial ONE (11:42)
[2019-01-22] MEDS ORDERED: Ketorolac Tromethamine 30 MG/ML VIAL ONE (11:42)
--- NOTE | 2019-01-22 12:01 | CT ---
CT ABDOMEN WITH CONTRAST CT PELVIS WITH CONTRAST: DATE: 01/22/2019 HISTORY: 38-year-old female with right lower quadrant abdominal pain with associated nausea, vomiting, and tania rrhea. Rule out appendicitis. COMPARISON: 08/10/2017. TECHNIQUE: IV injection of iodinated contrast media: administered. Oral contrast media:Not administered. FINDINGS: The appendix is retrocecal and normal. There is a new vertically elongated 8 x 4 x 3 mm calculus in the proximal left ureter at the L3 level . There is mild dilation of left renal collecting system. There is a 3 x 3 x 2 mm calculus at a left renal lower pole calyx. There is a 2 x 2 x 1 mm calculus at a left renal lower pole calyx. There is a 2 x 1 mm calculus at a right renal lower pole calyx. Bilateral nephrograms are symmetrical and homogeneous. No edema in the perirenal space. No calculus i n the decompressed urinary bladder. Absent uterus. Left ovary contains prominent follicles. No evidence of colonic diverticulitis. No small bowel dilation. Essentially normal abdominal aorta, liver, pancreas, right adrenal, and spleen. Left-sided inferior IVC beginning at level of left renal vein. The upper IVC is in its normal locatio n on the right.. Left adrenal gland poorly visualized. Tiny metallic density in the expected location of the left adre nal. No ascites or pneumoperitoneum. Lung bases are clear. IMPRESSION: 1) elongated 8 x 4 x 3 mm calculus in the proximal left ureter causing a low-grade partial left obstr uctive uropathy, with mild left hydronephrosis. 2) bilateral nephrolithiasis with a few tiny bilateral renal calculi. 3) normal appendix. 4) status post left adrenal gland resection. 5) status post hysterectomy. 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
[2019-01-22] MEDS ORDERED: ISOVUE-370 76%-LOCM 1 ML ONE (12:37)
== END 2019-01-22 12:58 | disposition home or self-care (01) ==
LOC: ERS 09:57
DX: N13.2 Hydronephrosis with renal and ureteral calculous obstruction (principal); F17.210 Nicotine dependence, cigarettes, uncomplicated; Z79.899 Other long term (current) drug therapy; F41.9 Anxiety disorder, unspecified; F32.9 Major depressive disorder, single episode, unspecified
CPT/HCPCS: 36415; 74177; 80053; 81003; 81015; 81025; 83690; 85025; 96374; 96375; J1885; J2405; Q9966

== ENCOUNTER 2019-01-26 07:33 | Inpatient (IN) | payer SELFPAY ==
[2019-01-26] MEDS ORDERED: Morphine 4 MG/ML VIAL ONE ×2 (08:02→13:15)
[2019-01-26] MEDS ORDERED: Ondansetron PF 4 MG/2 ML Vial ONE ×2 (08:02→13:15)
[2019-01-26 08:09] LABS: #Eosinphils 0.3 thou/uL (0.0-0.7); #Lymphocytes 1.7 thou/uL (1.20-3.40); #Monocytes 0.3 thou/uL (0.11-0.59); #Neutrophils 3.9 thou/uL (1.40-6.50); %Basophils 0.1 % (0.0-1.0); %Eosinophils 4.1 % (0.0-10.0); %Lymphocytes 27.5 % (21.0-51.0); %Monocytes 5.5 % (0.0-10.0); %Neutrophils 62.8 % (42.0-75.0); Hemoglobin 14.2 g/dL (12.0-16.0); Mean Corpuscular Hemoglobin 31.7 pg (27.0-31.0); Mean Corpuscular Volume 93.1 fL (78.0-98.0); Mean Platelet Volume 8.8 fL (7.4-10.4); Platelet Count 154 thou/uL (130-400); Red Blood Cell (RBC) Count 4.48 mill/uL (4.20-5.40); White Blood Cell (WBC) Count 6.2 thou/uL (4.8-10.8)
[2019-01-26 08:31] LABS: ALT (SGPT) 9 U/L (8-55); AST (SGOT) 6 U/L (5-34); Albumin 3.9 g/dL (3.5-5.0); Alkaline Phosphatase 70 U/L (40-150); Anion Gap 10 mmol/L (10-20); BUN (Urea Nitrogen) 12 mg/dL (7.0-18.7); Bilirubin, Total 0.3 mg/dL (0.2-1.2); Calc. Creatinine Clearance 0 mL/min (70-130); Calcium 9.1 mg/dL (7.8-10.44); Carbon Dioxide 25 mmol/L (22-29); Chloride 107 mmol/L (98-107); Estimated GFR-MDRD 73; Globulin 2.1 g/dL (2.4-3.5); Glucose 95 mg/dL (70-105); Lipase 11 U/L (8-78); Potassium 3.7 mmol/L (3.5-5.1); Sodium 138 mmol/L (136-145)
[2019-01-26 10:10] LABS: Pregnancy Test - Urine (BHCG) Negative (Negative); Pregu Control Background? CLEAR/WHITE (CLR/WHITE); Pregu Control Bar Appear? YES (CONTROL BAR); Specific Gravity 1.008 (1.002-1.036)
[2019-01-26 10:19] LABS: Bacteria/HPF None Seen HPF (None Seen); Bilirubin Negative (Negative); Blood, Urine 3+ (Negative); Clarity Clear (Clear); Glucose, Urine (Dipstick) Normal (Negative); Leukocyte Negative Leu/uL (Negative); Nitrite Negative (Negative); Protein, Urine (Dipstick) Negative (Neg-Trace); RBC/HPF Greater than 50 HPF (0-3); Squamous Epithelial 0-3 HPF (0-3); Urobilinogen Normal mg/dL (Less than 2)
--- NOTE | 2019-01-26 11:38 | CT ---
CT ABDOMEN AND PELVIS WITHOUT CONTRAST: Date: 01/26/19 Multiple axial tomograms obtained without IV enhancement. INDICATION: Increasing left flank pain. Known left urinary tract calculus. Comparison made to CT of 01/22/19 which described a 3-4 mm calculus in the proximal left ureter. A ti ny nonobstructing calculus in the lower collecting structures of the left kidney seen. FINDINGS: Lung bases clear. Liver, spleen, and pancreas remain unremarkable. Review of urinary tract again shows mild left hydronephrosis. The previously noted 4 mm calculus in t he proximal left ureter now resides in the distal left ureter. There is a new calculus in the proxima l left ureter today measuring in the 3.0 mm range. There is a tiny calculus in the lower pole collecting structures of the left kidney seen measuring in the 2.0 mm range. Bowel loops unremarkable. No fluid or inflammatory change. No other interval change. Right urinary tr act unremarkable. IMPRESSION: 1. 4-5 mm calculus is now seen in the distal left ureter. 2. There is a new calculus in the proximal left ureter measuring 3 mm. 3. Tiny nonobstructing calculus in lower pole collecting structures of left kidney measuring in the 2 mm range. 4. These changes result in mild left hydronephrosis. POS: [facility]
[2019-01-26] MEDS ORDERED: Nicotine 21 MG PATCH TOP SCH (13:45)
[2019-01-26] MEDS: Ondansetron PF 4 MG/2 ML Vial IVP PRN ×2 (13:46→20:15)
[2019-01-26] MEDS ORDERED: Acetaminophen 325 MG TAB PO PRN (13:54)
[2019-01-26] MEDS ORDERED: Bisacodyl 10 MG SUPP PR PRN (13:54)
[2019-01-26] MEDS ORDERED: Guaifenesin DM 100-10/5 ML UDCUP PO PRN (13:54)
--- NOTE | 2019-01-26 14:23 | HP ---
REASON FOR ADMISSION: Left ureteric colic with nephrolithiasis. HISTORY OF PRESENTING ILLNESS: The patient gives history of having left-sided abdominal pain radiating to the groin from last one week. She had come to the emergency room on Wednesday and was diagnosed with nephrolithiasis. The patient felt better of initial treatment in the ER and was sent home. This morning, patient' s pain got worsened, and she in fact vomited 3 times from morning. She had not passed any urine for nearly 8.5 hours until she got IV fluids here in the ER. She has made some urine now. No complaints of chest pain, palpitation, PND, or orthopnea. No complaints of fever. The patient had some mild blood in the urine on Wednesday, but none after that. PAST MEDICAL AND SURGICAL HISTORY: History of major depression, PTSD, history of nightmares, asthma, left adrenal gland removed for likely cortisol excess which is improved after the procedure, hysterectomy, tobacco abuse. No gallbladder stones, but has some motility issues with gallbladder in the past. CURRENT MEDICATIONS: 1. The patient is on Zofran p.r.n. 2. Wellbutrin extended-release 150 mg daily. 3. Buspirone 10 mg twice daily. 4. Zyprexa 2.5 mg daily. 5. Seroquel 200 mg daily. 6. Prazosin 5 mg daily. 7. Motrin p.r.n. for pain. 8. Tylenol with codeine, which was given on Wednesday for pain. ALLERGIES: ALLERGIC TO BACTRIM, RISPERDAL. PERSONAL HISTORY: Smokes 1 pack per day. Does not abuse alcohol or drugs. She is currently living with her . FAMILY HISTORY: Both parents are living. Mother is alcoholic. Father has history of hypertension. CODE STATUS: Full. REVIEW OF SYSTEMS: CONSTITUTIONAL: Negative for weight loss or gain, ability to conduct usual activities. SKIN: Negative for rash, itching. EYES: Negative for double vision, pain. ENT/MOUTH: Negative for nose bleeding, neck stiffness, pain, tenderness. CARDIOVASCULAR: Negative for palpitations, dyspnea on exertion, orthopnea. RESPIRATORY: Negative for shortness of breath, wheezing, cough, hemoptysis, fever or night sweats. GASTROINTESTINAL: Negative for poor appetite, abdominal pain, heartburn, nausea , vomiting, constipation, or diarrhea. GENITOURINARY: Negative for urgency, frequency, dysuria, nocturia. MUSCULOSKELETAL: Negative for pain, swelling. NEUROLOGIC/PSYCHIATRIC: Negative for anxiety, depression. ALLERGY/IMMUNOLOGIC: Negative for skin rash, bleeding tendency. PHYSICAL EXAMINATION: GENERAL: The patient is a 38-year-old female, who is currently not in any pain at present. VITAL SIGNS: Blood pressure 184/110 on arrival, pulse 80 per minute, respiratory rate 20 per minute, temperature 98.1 degrees Fahrenheit, saturating 97% on room air. NECK: Supple. No elevated JVD. HEENT: Eyes; extraocular muscles intact. Pupils are reacting to light. Oral cavity, mucous membranes are dry. No exudates or congestion. CARDIOVASCULAR: S1 and S2 heard. Regular rhythm. RESPIRATORY: Air entry 1+ bilateral. No rales or rhonchi. ABDOMEN: Soft. There is mild CV angle tenderness on the left side. No rigidity or guarding. Bowel sounds are heard. EXTREMITIES: No peripheral edema or calf tenderness. VASCULAR: Peripheral pulses, 2+ bilateral. No ischemic ulcers or gangrene. CENTRAL NERVOUS SYSTEM: No gross focal deficits noted. The patient is alert, awake, and oriented well. PSYCHIATRIC: The patient's mood is euthymic. No hallucinations or delusions. LABORATORY DATA: CT stone protocol done shows 4 to 5 mm calculus in the distal left ureter. There is a new calculus in the proximal left ureter measuring 3 mm. Tiny nonobstructing calculus in lower pole, collecting structures of left kidney measuring 2 mm range. These changes result in mild left hydronephrosis. White count of 6, hemoglobin and hematocrit 14 and 41, platelet count 154, MCV is 93 with 62% neutrophils. Electrolytes are stable. BUN 12, creatinine 0.8, serum glucose 95. Liver enzymes within normal limits. Albumin is 3.9. Lipase is 11. UA shows greater than 50 rbc's. CLINICAL IMPRESSION AND PLAN: The patient will be admitted under observation on medical floor for left ureteric colic with nephrolithiasis. The patient's stones are small and likely will pass with gentle hydration. She will be on normal saline at 100 mL/h. Dr. Vito Lau, urologist, has been consulted from ER. Urine culture has been obtained in the ER as well. There are no signs of any infection as such at present. She will be on morphine and [place] p.r.n. for pain. We will continue her psychotropic medication including Effexor, Zyprexa, Seroquel, and buspirone. 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 We will continue to closely monitor her on medical floor. Job ID: [id number] MTDD
[2019-01-26 14:27] VITALS: BMI 32.1
[2019-01-26] MEDS: Sodium Chloride 0.9% 1,000 ML IV SCH (15:32)
[2019-01-26] MEDS: HYDROcodone/Acetaminophen 5/325 mg Tablet PO PRN ×2 (17:06→22:42)
[2019-01-26] MEDS: Morphine 4 MG/ML VIAL SLOW IVP PRN (20:22)
[2019-01-26] MEDS: Prazosin HCl 1 MG CAP PO SCH (20:23)
[2019-01-26] MEDS: Famotidine 20 MG TAB PO SCH (20:24)
[2019-01-26] MEDS: Senokot S 8.6-50 MG TAB PO SCH (20:24)
[2019-01-26] MEDS ORDERED: Alfuzosin 10 MG TABDR...ER PO SCH (22:00)
[2019-01-27] MEDS: Sodium Chloride 0.9% 1,000 ML IV SCH ×3 (00:59→20:28)
[2019-01-27] MEDS: Morphine 4 MG/ML VIAL SLOW IVP PRN ×2 (01:02→08:17)
[2019-01-27] MEDS: Ondansetron PF 4 MG/2 ML Vial IVP PRN ×2 (01:46→08:18)
[2019-01-27] MEDS ORDERED: Ketorolac Tromethamine 30 MG/ML VIAL IVP SCH (03:15)
--- NOTE | 2019-01-27 04:00 | CON ---
DATE OF CONSULTATION: REASON FOR CONSULTATION: Left ureteral calculi. HISTORY OF PRESENT ILLNESS: Ms. 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 The patient reports that she was in the ER earlier in the week for flank pain symptoms, but had some resolution with Motrin and Tylenol. She was discharged home and was able to work for 1 day before she became bedridden with nausea and vomiting. The patient presented to the emergency department today without significant urine production for about an 8-hour period and was felt to be dehydrated. The patient was admitted for medical management. She reports intense left flank pain, left anterior abdominal discomfort and radiation into the urethra. She has had severe nausea and vomiting which as improved during her hospitalization. PAST MEDICAL HISTORY: 1. Major depression. 2. PTSD. 3. Asthma. PAST SURGICAL HISTORY: 1. Left adrenal gland removed for probable cortisol excess. 2. Hysterectomy. SOCIAL HISTORY: Positive for current tobacco abuse. OUTPATIENT MEDICATION LIST: 1. Zofran, taken on a p.r.n. basis. 2. Wellbutrin extended release 150 mg per day. 3. Buspirone 10 mg twice daily. 4. Zyprexa 2.5 mg p.o. daily. 5. Seroquel 200 mg p.o. daily. 6. Prazosin 5 mg p.o. daily. 7. Motrin p.r.n. for pain. 8. Tylenol with codeine. ALLERGIES: THE PATIENT IS ALLERGIC TO BACTRIM AND SULFA DRUGS WELL RISPERDAL. THE PATIENT SPECIFICALLY DENIES ANY PAST MEDICAL HISTORY OF KIDNEY STONES. SHE DOES REPORT STRAINING TO LIFT SOME HEAVY ITEMS EARLIER IN THE WEEK, LIFTING HEAVY BOXES OFF THE FLOOR AND AFTER THIS DEVELOPED HER BACK PAIN SYMPTOMS. PHYSICAL EXAMINATION: VITAL SIGNS: The patient is currently afebrile with a temperature of 97.8, pulse is 59 at present, respiratory rate is 16, O2 saturation on room air is 97%, and blood pressure is 169/113. The patient does report she is in pain at the time of her vital sign assessment. URINE PRODUCTION: The patient voided into the toilet earlier today and had unmeasured void. HEAD, EYES, EARS, NOSE, AND THROAT: Extraocular movements are intact. Sclerae anicteric. Oropharynx is clear. Dentition is poor. NECK: Supple. LUNGS: Clear to auscultation bilaterally. CARDIAC: There is borderline bradycardic rate of 59 to 60. ABDOMEN: Soft, obese, and nontender. The patient had previous laparoscopic left nephrectomy and had a hysterectomy also by laparoscopic means. BACK: There is positive left-sided costovertebral angle tenderness on percussion. The patient reports left anterior abdominal discomfort with radiation to the urethra and labia on the left. EXTREMITIES: The patient has all of her toes and fingers. There is no edema in the lower extremities at the present time. LABORATORY STUDIES: The patient's white count is 6200 on admission, hemoglobin 14.2 with hematocrit 41.7. There is no evidence of left shift with 62.8% neutrophils. Serum chemistry shows blood urea nitrogen at 12, creatinine at 0.87 indicating moderate degree of dehydration at admission. Electrolytes, otherwise, within normal limits. RADIOLOGIC STUDIES: A CT scan of the abdomen and pelvis performed on 01/26/2019 at 7:53 a.m. demonstrates the presence of left-sided ureteral calculi, largest of which appears to be in the left distal ureter in the 4 mm range. There are additional calculi in the left ureter measuring up to 3 mm in diameter. There is a tiny calculus in the lower pole collecting system of the left kidney also measuring the 2 mm range. ASSESSMENT AND PLAN: 1. Multiple left ureteral calculi and small 2 mm left lower pole calculus. The patient is currently on a medical trial of passage with hydration due to her extensive nausea and vomiting as well as dehydration complaints. The patient will continue on medical therapy for now. I am recommending making the patient n.p.o. past midnight in case she has progression of her symptoms to the point where she is not able to tolerate it anymore. The patient has appropriate IV fluid and narcotic pain control. The patient will be placed on the OR schedule if there is no resolution of her symptoms. We will make her n.p.o. after midnight for that. I recommend a KUB imaging study to be performed in the morning to determine if we are able to see her stones and use this less-expensive method for following her passage of stones. 2. Multiple stones and risk factor management stones need to be captured and urine should be strained. As well, I wait her analysis for her risk factors. Job ID: [id number]
[2019-01-27 05:57] LABS: #Eosinphils 0.3 thou/uL (0.0-0.7); #Lymphocytes 2.3 thou/uL (1.20-3.40); #Monocytes 0.3 thou/uL (0.11-0.59); #Neutrophils 2.4 thou/uL (1.40-6.50); %Basophils 0.3 % (0.0-1.0); %Eosinophils 5.5 % (0.0-10.0); %Lymphocytes 43.9 % (21.0-51.0); %Monocytes 5.5 % (0.0-10.0); %Neutrophils 44.8 % (42.0-75.0); Hemoglobin 12.6 g/dL (12.0-16.0); Mean Corpuscular HGB CONC 33.8 g/dL (32.0-36.0); Mean Corpuscular Hemoglobin 31.9 pg (27.0-31.0); Mean Corpuscular Volume 94.3 fL (78.0-98.0); Mean Platelet Volume 8.9 fL (7.4-10.4); Platelet Count 133 thou/uL (130-400); RBC Distribution Width 11.9 % (11.5-14.5); Red Blood Cell (RBC) Count 3.96 mill/uL (4.20-5.40); White Blood Cell (WBC) Count 5.3 thou/uL (4.8-10.8)
[2019-01-27 06:17] LABS: Anion Gap 8 mmol/L (10-20); BUN (Urea Nitrogen) 11 mg/dL (7.0-18.7); Calc. Creatinine Clearance 122 mL/min (70-130); Calcium 8.5 mg/dL (7.8-10.44); Carbon Dioxide 27 mmol/L (22-29); Chloride 108 mmol/L (98-107); Estimated GFR-MDRD 78; Glucose 91 mg/dL (70-105); Potassium 3.7 mmol/L (3.5-5.1); Sodium 139 mmol/L (136-145)
[2019-01-27] MEDS: Venlafaxine HCl XR 75 MG CAP PO SCH (08:20)
[2019-01-27] MEDS: Senokot S 8.6-50 MG TAB PO SCH ×2 (08:21→20:10)
[2019-01-27] MEDS: busPIRone HCl 10 MG TAB PO SCH (08:21)
[2019-01-27] MEDS: Famotidine 20 MG TAB PO SCH ×2 (08:21→20:10)
[2019-01-27] MEDS: Enoxaparin Sodium 40 MG/0.4 ML SYRINGE SC SCH (08:21)
[2019-01-27] MEDS ORDERED: Clopidogrel Bisulfate 75 MG TAB ONE (09:57)
[2019-01-27] MEDS: Prazosin HCl 1 MG CAP PO SCH ×2 (10:01→20:28)
[2019-01-27] MEDS: OLANZapine 2.5 MG TAB PO SCH (10:01)
[2019-01-27] MEDS: HYDROcodone/Acetaminophen 5/325 mg Tablet PO PRN ×2 (10:01→20:08)
[2019-01-27] MEDS ORDERED: CEFAZOLIN 2 GM in Premix Bag 1 BAG IVPB SCH (13:45)
[2019-01-27] MEDS ORDERED: Lidocaine 1% PF 5 ML VIAL ONE (14:34)
[2019-01-27] MEDS ORDERED: Succinylcholine Chloride 20 MG/ML 10 ml SYRINGE FS ONE (14:34)
[2019-01-27] MEDS ORDERED: ePHEDrine 50 MG/ML VIAL ONE (14:34)
[2019-01-27] MEDS ORDERED: PROPOFOL 200 MG/20 ML VIAL ONE (14:34)
[2019-01-27] MEDS ORDERED: Ondansetron PF 4 MG/2 ML Vial ONE ×2 (14:34→15:06)
[2019-01-27] MEDS ORDERED: Dexamethasone 20 MG/5 ML VIAL ONE (14:34)
[2019-01-27] MEDS ORDERED: Morphine 4 MG/ML VIAL ONE (15:02)
--- NOTE | 2019-01-27 15:39 | PDOC.PN ---
- Subjective Encounter Start Date: 01/27/19 Encounter Start Time: 14:20 Subjective: still has abd pain, is passing lot of urine now -: no material seen on strained urine so far -: had some nausea this am - Objective Resuscitation Status - Order Detail: 01/26/19 13:50 Resuscitation Status Routine Resuscitation Status: FULL: Full Resuscitation MAR Reviewed: Yes Vital Signs & Weight: Vital Signs (12 hours) Temp Pulse Resp BP Pulse Ox 01/27/19 12:00 97.8 F 55 L 16 150/94 H 98 01/27/19 08:20 97 01/27/19 07:58 97.9 F 66 16 137/90 97 01/27/19 04:00 97.8 F 58 L 16 143/91 H 97 Weight Admit Weight 181 lb Weight 181 lb I&O: 01/26/19 01/27/19 01/28/19 06:59 06:59 06:59 Intake Total 2370 Output Total 1450 Balance 920 Result Diagrams: 01/27/19 05:35 01/27/19 05:35 Phys Exam - Physical Examination HEENT: PERRLA, moist MMs Neck: no JVD, supple Respiratory: no wheezing, no rales Cardiovascular: RRR, no significant murmur Gastrointestinal: soft, non-tender, positive bowel sounds Musculoskeletal: no edema, pulses present Neurological: non-focal, moves all 4 limbs Psychiatric: normal affect, A&O x 3 Dx/Plan (1) Nephrolithiasis Status: Acute (2) Ureteric colic Code(s): N23 - UNSPECIFIED RENAL COLIC Status: Acute (3) Obesity (BMI 30.0-34.9) Code(s): E66.9 - OBESITY, UNSPECIFIED Status: Chronic (4) Anxiety and depression Code(s): F41.9 - ANXIETY DISORDER, UNSPECIFIED; F32.9 - MAJOR DEPRESSIVE DISORDER, SINGLE EPISODE, UNSPECIFIED Status: Chronic (5) Tobacco dependence Code(s): F17.200 - NICOTINE DEPENDENCE, UNSPECIFIED, UNCOMPLICATED Status: Chronic - Plan hemostable -: switch pt to inpatient status -: is npo for possible cystoscopy/stenting -: continue iv hydration and prazosin -: on buspar, effexor, zyprexa, morphine prn * . Review of Systems - Medications/Allergies Allergies/Adverse Reactions: Allergies Allergy/AdvReac Type Severity Reaction Status Date / Time Sulfa (Sulfonamide Allergy Severe Anaphylaxis Verified 01/26/19 14:37 Antibiotics) risperidone [From Risperdal] Allergy Intermediate Swollen Verified 01/26/19 14: 37 Lips trimethoprim [From Bactrim] Allergy Mild Anaphylaxis Verified 01/26/19 14:28 banana Allergy Verified 01/26/19 14:28 sulfamethoxazole Allergy Anaphylaxis Verified 11/24/16 14:39 [From Bactrim] Medications: Current Medications Acetaminophen (Tylenol) 650 mg PO Q4H PRN PRN Reason: Headache/Fever/Mild Pain (1-3) Hydrocodone Bitart/Acetaminophen ([place] 5/325) 1 tab PO Q4H PRN PRN Reason: Moderate Pain (4-6) Last Admin: 01/27/19 10:01 Dose: 1 tab Bisacodyl (Dulcolax) 10 mg OR DAILYPRN PRN PRN Reason: Constipation Buspirone HCl (Buspar) 10 mg PO DAILY [facility] Last Admin: 01/27/19 08:21 Dose: 10 mg Enoxaparin Sodium (Lovenox) 40 mg SC 0900 [facility] Last Admin: 01/27/19 08:21 Dose: 40 mg Famotidine (Pepcid) 20 mg PO BID [facility] Last Admin: 01/27/19 08:21 Dose: 20 mg Guaifenesin/Dextromethorphan (Robitussin Dm) 15 ml PO Q4H PRN PRN Reason: Cough Sodium Chloride (Normal Saline 0.9%) 1,000 mls @ 100 mls/hr IV .Q10H [facility] Last Admin: 01/27/19 10:02 Dose: 1,000 mls Cefazolin Sodium/Dextrose 2 gm (/ Device) 50 mls @ 100 mls/hr IVPB [facility] Morphine Sulfate (Morphine) 4 mg SLOW IVP Q6H PRN PRN Reason: Pain Last Admin: 01/27/19 08:17 Dose: 4 mg Olanzapine (Zyprexa) 2.5 mg PO DAILY [facility] Last Admin: 01/27/19 10:01 Dose: 2.5 mg Ondansetron HCl (Zofran) 4 mg IVP Q6H PRN PRN Reason: Nausea/Vomiting Last Admin: 01/27/19 08:18 Dose: 4 mg Prazosin HCl (Minipress) 2 mg PO BID [facility] Last Admin: 01/27/19 10:01 Dose: 2 mg Senna/Docusate Sodium (Senokot S) 2 tab PO BID [facility] Last Admin: 01/27/19 08:21 Dose: 2 tab Sodium Chloride (Flush - Normal Saline) 10 ml IVF Q12HR LEELA Sodium Chloride (Flush - Normal Saline) 10 ml IVF PRN PRN PRN Reason: Saline Flush Venlafaxine HCl (Effexor Xr) 75 mg PO DAILY [facility] Last Admin: 01/27/19 08:20 Dose: 75 mg
[2019-01-27] MEDS ORDERED: Iothalamate Meglumine 60% 50 ML VIAL FS ONE (16:17)
[2019-01-27] MEDS ORDERED: Midazolam HCl 2 mg/2 ml Vial ONE (16:30)
[2019-01-27] MEDS ORDERED: Fentanyl 100 MCG/2 ML VIAL ONE ×3 (16:30→18:41)
[2019-01-27] MEDS ORDERED: Metoclopramide HCl 10 MG/2 ML VIAL ONE (16:41)
[2019-01-27] MEDS ORDERED: B & O ONE (17:57)
[2019-01-27] MEDS ORDERED: Promethazine HCl 25 MG/ML VIAL IM PRN (18:14)
[2019-01-27] MEDS ORDERED: Ondansetron HCl/PF 4 MG/2 ML Vial IVP PRN (18:14)
[2019-01-27] MEDS ORDERED: Promethazine HCl 25 MG/ML VIAL SLOW IVP PRN (18:14)
[2019-01-27] MEDS ORDERED: Promethazine HCl 25 MG/ML VIAL ONE (18:16)
--- NOTE | 2019-01-27 19:17 | RAD ---
FOUR IMAGES FROM A RETROGRADE IVP 01/27/19 INDICATION: ureteral stent placement FINDINGS: Provided images demonstrate wire canalization of the left renal collecting system with a left uretero scope. Subsequent images demonstrate placement of a left ureteral stent. The bowel gas pattern is unr emarkable appearing. There is small phleboliths within the left pelvis. Suspected distal ureteral deanna culus is difficult to identify due to the numerous phleboliths within the lower pelvis. IMPRESSION: Interval placement of a left ureteral stent. Patient's small proximal left ureteral calculus and more larger distal ureteral calculus seen on CT of the abdomen and pelvis dated 01/26/19 is difficult to e valuate on the provided images. POS: BH
--- NOTE | 2019-01-27 22:42 | PRG ---
DATE OF SERVICE: 01/27/2019 INITIAL REASON FOR CONSULTATION: Multiple left-sided stones with obstruction. BRIEF HISTORY: Ms. Shell Otto is a pleasant 38-year-old white female with multiple left-sided kidney stones as well as history of multiple psychiatric disorders. She presented to emergency department on 01/27/2019 and had left-sided kidney stones including left distal ureteral calculus, left mid ureteral calculus, and left renal calculus. The patient has had intractable pain due to this and has not been able to adequately tolerate diet or oral fluids since been in the hospital for management of dehydration and electrolyte difficulties secondary to vomiting. The patient today reports no change in her symptoms, still has severe left-sided flank pain with left lower abdominal pain, and has had no progression in the symptoms. She desires an intervention for those complaints. PHYSICAL EXAMINATION: VITAL SIGNS: The patient is afebrile. Current temperature is 97.8, pulse is 55 secondary to hydration, respiratory rate is 16, O2 saturation 98% on room air, and blood pressure is 150/94. HEAD, EYES, EARS, NOSE, AND THROAT: Extraocular movements are intact. Sclerae are anicteric. Oropharynx is clear. NECK: Supple. LUNGS: Clear to auscultation bilaterally. ABDOMEN: The patient reports tenderness in the left flank, left anterior abdomen, left genital area including the urethra. Symptoms are unchanged from yesterday. LABORATORY STUDIES: The patient's white count is 5.3 thousand today. Her hemoglobin is 12.6 with hematocrit of 37.4 secondary to hydration. Serum chemistries are within normal limits except for chloride which is 108 today, and the patient has an anion gap of 8. ASSESSMENT: 1. Multiple left-sided ureteral calculi with intractable left flank pain, nausea, and vomiting. The patient desires an intervention. We plan on proceeding to the operating room for cystoscopy and stent placement. If her stones appear minimal to this, we will plan on balloon dilation of her ureter and possible ureteroscopy with laser lithotripsy. We will wait until a laser is available for that procedure. 2. Anticoagulation. I think it would be appropriate for this patient to be on heparin subcu for her procedure. She had Lovenox yesterday. Job ID: [id number]
[2019-01-28] MEDS: HYDROcodone/Acetaminophen 5/325 mg Tablet PO PRN ×2 (00:19→08:08)
--- NOTE | 2019-01-28 00:46 | OP ---
DATE OF PROCEDURE: 01/27/2019 PREOPERATIVE DIAGNOSES: 1. Left ureteral calculus, N20.1. 2. Left renal stones, N20.0. POSTPROCEDURAL DIAGNOSES: 1. Left ureteral calculus, N20.1. 2. Left renal stones, N20.0. PROCEDURES PERFORMED: 1. Cystourethroscopy with ureteroscopy and laser lithotripsy of the left ureter, 18311. 2. Balloon dilation of left ureteral impaction stricture, 82749. 3. Cystourethroscopy with left stent placement, 35786. SPECIMENS REMOVED: Ureteral calculi x3 including a left renal calculus as well. FINDINGS: There were 3 stones in the left collecting system. Two larger stones in the lower portion of the left ureter. These were white in coloration by cystoscopic evaluation and kelly-colored by room light suggesting possible calcium phosphate. They were radiopaque on fluorography, but faintly so. DRAINS AND TUBES: The patient has a left-sided double-J ureteral stent 4.5-Norwegian x [address] There is no string on it. This will require cystoscopic removal in clinic. No imaging studies are required before removal of the stent. The patient will need to follow up in my office around 02/09/2019 for stent removal on the left side. DESCRIPTION OF PROCEDURE: Patient was appropriately identified in the preoperative holding area and was subsequently brought to the operative suite, placed in the supine position on the cysto-fluorographic table. General anesthesia was established. The patient was repositioned in the supine lithotomy position and prepped and draped in usual sterile fashion. Cystoscopic evaluation was performed using a 22-Norwegian cystoscope sheath introduced with an obturator followed by a 30-degree optic. The patient's bladder was examined and there was no evidence of stones. There were no tumors or other abnormal findings. Efflux was observed from the patient's right ureteric orifice. Left ureteric orifice had no efflux. Cystoscopic evaluation found no other abnormalities. We utilized a 5-Norwegian Pollack catheter which we advanced to the left ureteric opening and subsequently advanced a 0.035 angled Glidewire. This was advanced to the level of the renal pelvis bypassing a radiopaque calculus in the distal ureter. Two phleboliths were also seen in the area of the distal ureter. After placement of the 1st wire, a 2nd wire was subsequently placed and brought out to below. These were both secured to the operative drape. We then performed balloon dilation of the left ureter over 1 of the 2 wires using a 12-Norwegian x 4 cm dilation balloon. Dilation of the distal ureteral impaction stricture was performed. We utilized a total of 20 atmosphere pressure in the balloon to stretch the ureteric opening on the left side. We then performed semi-rigid ureteroscopy using a Blevins mini semi-rigid scope which was advanced all the way up to the level of the ureteropelvic junction, identifying 3 stones in total. One of the stones was about 7 mm in length. We performed laser lithotripsy in the midportion of the stone using a power setting of 0.2 joules at 40 hertz. Laser lithotripsy resulted in to 2 large fragments which were recovered. We utilized a Zero Tip Nitinol basket for recovery. Two additional stones were subsequently found above this level, 1 of them presumably the 2-mm stone seen on CT scanning in the lower pole area of the patient's left kidney. The other stone likely the 3 mm stone previously observed as well. After the patient was left stone-free by cystoscopic, ureteroscopic, and fluorographic methods, we placed a 4.5-Norwegian x 28 cm double-J ureteral stent over the and advanced this to the level of the renal pelvis, where a good coil was obtained. The terminal end of the stent was left in the patient's bladder. We removed the string from this to decrease discomfort and risk of infection. The patient tolerated the procedure well and was transported to the postop recovery area in good condition. SPECIMENS: Multiple stone fragments for chemical analysis sent dry. DRAINS AND TUBES: 4.5-Norwegian x 28 cm double-J ureteral stent in the patient's left ureter. No string. This stent will not require imaging studies prior to removal. COMPLICATIONS: None evident. ESTIMATED BLOOD LOSS: 0 mL. Job ID: [id number]
[2019-01-28] MEDS ORDERED: Labetalol HCl 100 MG/20 ML VIAL SLOW IVP PRN (01:52)
[2019-01-28] MEDS ORDERED: Nicotine 21 MG PATCH TD SCH ×2 (02:00→09:00)
[2019-01-28] MEDS: Sodium Chloride 0.9% 1,000 ML IV SCH ×2 (03:38→13:05)
[2019-01-28] MEDS: Morphine 4 MG/ML VIAL SLOW IVP PRN ×2 (03:40→13:05)
[2019-01-28] MEDS: OLANZapine 2.5 MG TAB PO SCH (08:10)
[2019-01-28] MEDS: Senokot S 8.6-50 MG TAB PO SCH (08:10)
[2019-01-28] MEDS: Prazosin HCl 1 MG CAP PO SCH (08:10)
[2019-01-28] MEDS: Venlafaxine HCl XR 75 MG CAP PO SCH (08:10)
[2019-01-28] MEDS: Famotidine 20 MG TAB PO SCH (08:10)
[2019-01-28] MEDS: busPIRone HCl 10 MG TAB PO SCH (08:10)
[2019-01-28] MEDS: Enoxaparin Sodium 40 MG/0.4 ML SYRINGE SC SCH (08:16)
[2019-01-28 14:58] VITALS: BP 162/95; TEMP 97.7
--- NOTE | 2019-01-28 17:17 | DIS ---
DATE OF ADMISSION: 01/26/2019 DATE OF DISCHARGE: 01/28/2019 DISCHARGE DISPOSITION: HOME. PRIMARY DISCHARGE DIAGNOSES: 1. Left ureteral calculus. 2. Left renal stones, status post cystourethroscopy with ureteroscopy and laser lithotripsy of the left ureter. She has had balloon dilatation of left ureteral impaction stricture, has had left stent placement, has had a total of three calculi from the urethra on the left side and left renal calculus which were removed. SECONDARY DISCHARGE DIAGNOSES: 1. Obesity with BMI of 32. 2. Anxiety. 3. Depression. 4. Tobacco abuse. PROCEDURES DONE DURING HOSPITALIZATION: Abdominal and pelvic CAT scan done on the day of admission showed 4-5 mm calculus seen in the distal left ureter. There is a new calculus in the proximal left ureteral, measuring 3 mm. Tiny nonobstructing calculus in the lower pole collecting structures of left kidney measuring in the 2 mm range. Mild left hydronephrosis. The operative report by Dr. Sid Padron on 01/27/2019, as described above under primary discharge diagnosis. Urine culture was contaminated with mixed ann. H and H 12 and 37, platelet count 133, MCV is 94. Serum calcium is 8.5, BUN 11, creatinine 0.8, serum bicarb 27. Urine test was negative. Urinalysis showed 3+ blood with greater than 50 rbc's, leukocyte esterase and nitrite were negative on the urinalysis. INPATIENT CONSULT: Dr. Sid Padron for Urology. DISCHARGE MEDICATION: 1. Ciprofloxacin 500 mg p.o. twice daily for 7 days. 2. Motrin p.r.n. for pain. 3. Seroquel 200 mg p.o. daily. 4. Prazosin 5 mg daily. 5. Zyprexa 2.5 mg daily. 6. Buspirone 10 mg twice daily. 7. Wellbutrin extended release 150 mg daily. ALLERGIES: ALLERGIC TO SULFA, RISPERIDONE, BANANA. DISCHARGE PLAN: The patient to follow up with Dr. Sid Padron on 02/09/2019, for removal of stent and outpatient followup. She also needs to follow up with primary care physician in 1 week. The patient has been advised to check her blood pressure twice daily, to follow up with primary care physician in 1 week for any changes in medications for her blood pressure. BRIEF COURSE DURING HOSPITALIZATION: The patient initially came to ER with complaints of left lumbar area abdominal pain radiating to the groin. This has been ongoing for one week or so. She had come to emergency room two days prior to hospitalization for similar complaints. She was diagnosed with left ureteral calculus and left nephrolithiasis as well. The patient was on hydration therapy, which did not seem to help her. Her pain was persistent. Hence consultation with Dr. Sid Padron, Urology was requested. The patient has had cystourethroscope done with lithotripsy, balloon dilatation of ureteral impaction stricture and placement of stent in the left ureter. She also had three calculi removed as well as left renal calculus. Post these procedures, the patient's abdominal pain has completely resolved. She is tolerating oral solid diet this morning. She is ambulating and eating well. She is counseled to follow up with Dr. Sid Padron on the for removal of stent. Based on visual examination, the patient appears to have calcium phosphate stone per Dr. Sid Padron. She is hemodynamically stable and will be shortly discharged home. Please note, I have seen and examined the patient on the day of discharge. Job ID: [id number]
== END 2019-01-28 15:28 | disposition home or self-care (01) | DRG 661 ==
LOC: ERS 07:33 → OBSVTOIN 11:43 → ERHOLD 11:43 → T4-B 14:22
PROVIDERS: ADMIT Internal Medicine; ATTEND Internal Medicine
PROC: 0T778DZ Dilation of Left Ureter with Intraluminal Device, Via Natural or Artificial Opening Endoscopic (ICD-10-PCS; principal; 2019-01-27)
PROC: 0TC78ZZ Extirpation of Matter from Left Ureter, Via Natural or Artificial Opening Endoscopic (ICD-10-PCS; 2019-01-27)
PROC: BT1FZZZ Fluoroscopy of Left Kidney, Ureter and Bladder (ICD-10-PCS; 2019-01-27)
DX: N20.2 Calculus of kidney with calculus of ureter (principal); F32.9 Major depressive disorder, single episode, unspecified; F43.10 Post-traumatic stress disorder, unspecified; J45.909 Unspecified asthma, uncomplicated; E66.9 Obesity, unspecified; Z68.30 Body mass index [BMI] 30.0-30.9, adult; F17.200 Nicotine dependence, unspecified, uncomplicated; Z68.32 Body mass index [BMI] 32.0-32.9, adult; F41.9 Anxiety disorder, unspecified
CPT/HCPCS: 36415; 74176; 74420; 80048; 80053; 81003; 81015; 81025; 83690; 85025; 87086; 88300; 90471; 90732; 96361; 96374; 96375; C1758; C1769; G0009; J0690; J1650; J2250; J2270; J2405; J2550; J2765; J3010

== ENCOUNTER 2019-01-29 19:28 | Emergency (ER) | payer SELFPAY ==
[2019-01-29] MEDS ORDERED: Ketorolac Tromethamine 30 MG/ML VIAL ONE (19:57)
[2019-01-29 20:08] LABS: Pregnancy Test - Urine (BHCG) Negative (Negative); Pregu Control Background? CLEAR/WHITE (CLR/WHITE); Pregu Control Bar Appear? YES (CONTROL BAR); Specific Gravity 1.017 (1.002-1.036)
[2019-01-29 20:10] LABS: Bilirubin Negative (Negative); Blood, Urine 3+ (Negative); Clarity Turbid (Clear); Glucose, Urine (Dipstick) Normal (Negative); Leukocyte 500 Leu/uL (Negative); Nitrite Negative (Negative); Protein, Urine (Dipstick) 30 mg/dL (Neg-Trace); RBC/HPF Greater than 50 HPF (0-3); Urobilinogen Normal mg/dL (Less than 2); WBC/HPF None Seen HPF (0-3)
[2019-01-29 20:24] LABS: Bacteria/HPF Rare-Few HPF (None Seen)
[2019-01-29 20:26] LABS: Anion Gap 11 mmol/L (10-20); BUN (Urea Nitrogen) 12 mg/dL (7.0-18.7); Calc. Creatinine Clearance 0 mL/min (70-130); Calcium 9.5 mg/dL (7.8-10.44); Carbon Dioxide 27 mmol/L (22-29); Chloride 106 mmol/L (98-107); Estimated GFR-MDRD 74; Glucose 84 mg/dL (70-105); Sodium 140 mmol/L (136-145)
[2019-02-03 07:15] LABS: CA Oxalate Dihydrate 45 % (.); CA Oxalate Monohydrate 40 % (.); CA Phosphate 15 % (.); Color Tan (.); Stone Weight 43.7 mg (.)
== END 2019-01-29 21:12 | disposition home or self-care (01) ==
LOC: ERS 19:28
DX: N13.5 Crossing vessel and stricture of ureter without hydronephrosis (principal); J45.909 Unspecified asthma, uncomplicated; M79.7 Fibromyalgia; F41.9 Anxiety disorder, unspecified; F32.9 Major depressive disorder, single episode, unspecified; F17.210 Nicotine dependence, cigarettes, uncomplicated; Z79.899 Other long term (current) drug therapy
CPT/HCPCS: 36415; 80048; 81003; 81015; 81025; 82365; 96372; 99283; J1885

== ENCOUNTER 2019-02-13 10:19 | Emergency (ER) | payer SELFPAY ==
[2019-02-13 11:50] LABS: #Eosinphils 0.1 thou/uL (0.0-0.7); #Lymphocytes 0.9 thou/uL (1.20-3.40); #Monocytes 0.5 thou/uL (0.11-0.59); #Neutrophils 5.3 thou/uL (1.40-6.50); %Basophils 0.2 % (0.0-1.0); %Eosinophils 1.2 % (0.0-10.0); %Lymphocytes 12.5 % (21.0-51.0); %Neutrophils 79.1 % (42.0-75.0); Hemoglobin 13.2 g/dL (12.0-16.0); Mean Corpuscular Hemoglobin 32.1 pg (27.0-31.0); Mean Corpuscular Volume 94.5 fL (78.0-98.0); Mean Platelet Volume 9.2 fL (7.4-10.4); Platelet Count 165 thou/uL (130-400); RBC Distribution Width 11.8 % (11.5-14.5); Red Blood Cell (RBC) Count 4.12 mill/uL (4.20-5.40); White Blood Cell (WBC) Count 6.7 thou/uL (4.8-10.8)
[2019-02-13 12:14] LABS: ALT (SGPT) 9 U/L (8-55); AST (SGOT) 7 U/L (5-34); Albumin 4.1 g/dL (3.5-5.0); Alkaline Phosphatase 78 U/L (40-150); Anion Gap 10 mmol/L (10-20); BUN (Urea Nitrogen) 13 mg/dL (7.0-18.7); Calc. Creatinine Clearance 0 mL/min (70-130); Calcium 9.4 mg/dL (7.8-10.44); Carbon Dioxide 28 mmol/L (22-29); Chloride 105 mmol/L (98-107); Estimated GFR-MDRD 63; Globulin 2.4 g/dL (2.4-3.5); Glucose 108 mg/dL (70-105); Potassium 3.4 mmol/L (3.5-5.1); Protein, Total 6.5 g/dL (6.0-8.3); Sodium 140 mmol/L (136-145)
== END 2019-02-13 13:44 | disposition left against medical advice (07) ==
LOC: ERS 10:19
DX: Z53.21 Procedure and treatment not carried out due to patient leaving prior to being seen by health care provider (principal)
CPT/HCPCS: 36415; 80053; 85025

== ENCOUNTER 2019-05-20 12:24 | Emergency (ER) | payer OTHER, SELFPAY ==
[2019-05-20] MEDS ORDERED: Ketorolac Tromethamine 60 MG/2 ML VIAL ONE (13:03)
--- NOTE | 2019-05-20 13:44 | RAD ---
XR Ankle Rt 3 View STANDARD History: Injury. Pain. Comparison: None. Findings: Mild bimalleolar edema. Nondisplaced transverse foramen fracture medial malleolar tip. Impression: Nondisplaced transversely oriented fracture medial malleolar tip.
--- NOTE | 2019-05-20 13:45 | RAD ---
XR Foot Rt 3 View STANDARD History: Pain Comparison: None. Findings: Nondisplaced medial malleolar tip fracture. Type II navicular ossicle. Impression: Nondisplaced medial malleolar tip fracture.
== END 2019-05-20 14:55 | disposition home or self-care (01) ==
LOC: ERS 12:24
DX: S82.54XA Nondisplaced fracture of medial malleolus of right tibia, initial encounter for closed fracture (principal); M79.7 Fibromyalgia; F32.9 Major depressive disorder, single episode, unspecified; F43.10 Post-traumatic stress disorder, unspecified; Z79.899 Other long term (current) drug therapy; X50.9XXA Other and unspecified overexertion or strenuous movements or postures, initial encounter
CPT/HCPCS: 29515; 96372; J1885

== ENCOUNTER 2019-05-22 19:38 | Emergency (ER) | payer OTHER, SELFPAY | END 2019-05-22 21:22 | disposition home or self-care (01) | LOC: ERS 19:38 | DX: S82.51XA Displaced fracture of medial malleolus of right tibia, initial encounter for closed fracture (principal); F17.210 Nicotine dependence, cigarettes, uncomplicated; F41.9 Anxiety disorder, unspecified; F32.9 Major depressive disorder, single episode, unspecified; X58.XXXA Exposure to other specified factors, initial encounter | CPT/HCPCS: 29515 ==

== ENCOUNTER 2019-09-04 01:49 | Emergency (ER) | payer SELFPAY ==
--- NOTE | 2019-09-04 08:14 | RAD ---
TWO VIEWS OF THE CHEST: COMPARISON: 09/29/2018. HISTORY: Cough and chills for 1 week. FINDINGS: Two views of the chest show normal sized cardiomediastinal silhouette. There is no evidence of consol idation, mass, or pleural effusion. The bones are unremarkable. IMPRESSION: No evidence of acute cardiopulmonary disease. POS: [facility]
== END 2019-09-04 04:00 | disposition left against medical advice (07) ==
LOC: ERS 01:49
DX: J06.9 Acute upper respiratory infection, unspecified (principal); F41.9 Anxiety disorder, unspecified; F32.9 Major depressive disorder, single episode, unspecified; F17.210 Nicotine dependence, cigarettes, uncomplicated; Z79.899 Other long term (current) drug therapy; Z87.442 Personal history of urinary calculi; Z71.6 Tobacco abuse counseling
CPT/HCPCS: 71046; 99406

== ENCOUNTER 2020-06-24 22:05 | Emergency (ER) | payer SELFPAY ==
[2020-06-24 23:07] LABS: Hemoglobin 13.4 g/dL (12.0-16.0); Mean Corpuscular Hemoglobin 31.5 pg (27.0-31.0); Mean Corpuscular Volume 95.3 fL (78.0-98.0); Red Blood Cell (RBC) Count 4.26 mill/uL (4.20-5.40); White Blood Cell (WBC) Count 7.4 thou/uL (4.8-10.8)
[2020-06-24 23:08] LABS: #Basophils 0.1 thou/uL (0.0-0.2); #Eosinphils 0.5 thou/uL (0.0-0.7); #Lymphocytes 1.5 thou/uL (1.20-3.40); #Monocytes 0.4 thou/uL (0.11-0.59); %Basophils 0.8 % (0.0-1.0); %Eosinophils 7.1 % (0.0-10.0); %Lymphocytes 20.4 % (21.0-51.0); %Monocytes 4.8 % (0.0-10.0); %Neutrophils 66.9 % (42.0-75.0); Platelet Count 160 thou/uL (130-400); RBC Distribution Width 11.7 % (11.5-14.5)
[2020-06-24 23:16] LABS: Potassium 4.4 mmol/L (3.5-5.1); Sodium 138 mmol/L (136-145)
[2020-06-24 23:17] LABS: Chloride 106 mmol/L (98-107)
[2020-06-24] MEDS ORDERED: Morphine 4 MG/ML VIAL ONE (23:19)
[2020-06-24 23:20] LABS: Anion Gap 10 mmol/L (10-20); BUN (Urea Nitrogen) 12 mg/dL (7.0-18.7); Calc. Creatinine Clearance 0 mL/min (70-130); Carbon Dioxide 26 mmol/L (22-29)
[2020-06-24] MEDS ORDERED: Ondansetron PF 4 MG/2 ML Vial ONE (23:20)
[2020-06-24 23:21] LABS: Albumin 3.6 g/dL (3.5-5.0); Bilirubin, Total 0.2 mg/dL (0.2-1.2); Calcium 8.3 mg/dL (7.8-10.44); Globulin 2.2 g/dL (2.4-3.5); Glucose 102 mg/dL (70-105); Protein, Total 5.8 g/dL (6.0-8.3)
[2020-06-24 23:22] LABS: ALT (SGPT) 43 U/L (8-55); AST (SGOT) 27 U/L (5-34); Alkaline Phosphatase 89 U/L (40-110)
--- NOTE | 2020-06-24 23:33 | CT ---
CT Abdomen Pelvis WO Con History: Abdominal pain Comparison: Abdomen pelvis CT without contrast April 23, 2019 Findings: Lung bases are clear. No pericardial effusion. Numerous phleboliths in the pelvis. Punctate 1 to 2 mm calculi within the right inferior renal collecting system as well as the left supe rior, interpolar, and inferior renal collecting systems. No hydroureteronephrosis. No ureteral calculi. Right gonadal vein phleboliths. Trace free fluid in the pelvis. No dilated loops of large or small bowel. The appendix is visualized and is normal. No calculus within the urinary bladder. No acute osseous abnormality. Noncontrast evaluation of the spleen, pancreas, liver, gallbladder are unremarkable. Impression: Punctate nonobstructive bilateral renal calculi.
[2020-06-24 23:48] LABS: Pregnancy Test - Urine (BHCG) Negative (Negative); Pregu Control Background? CLEAR/WHITE (CLR/WHITE); Pregu Control Bar Appear? YES (CONTROL BAR)
[2020-06-24 23:49] LABS: WBC/HPF Greater than 50 HPF (0-3)
[2020-06-24 23:56] LABS: Bilirubin Negative (Negative); Blood, Urine Negative (Negative); Clarity Clear (Clear); Glucose, Urine (Dipstick) Normal (Negative); Ketone, Urine Negative (Negative); Leukocyte 75 Leu/uL (Negative); Nitrite Negative (Negative); Protein, Urine (Dipstick) 20 mg/dL (Neg-Trace); Specific Gravity, Urine 1.024 (1.002-1.036); Urobilinogen Normal mg/dL (Less than 2); pH, Urine 7.5 (5.0-9.0)
[2020-06-24 23:57] LABS: Bacteria/HPF 1+ HPF (None Seen); Specific Gravity 1.024 (1.002-1.036)
[2020-06-25 00:25] LABS: BHCG - Serum Negative (NEGATIVE); Pregs Control Background? CLEAR/WHITE (CLR/WHITE); Pregs Control Bar Appear? YES (CONTROL BAR)
[2020-06-25] MEDS ORDERED: Ketorolac Tromethamine 30 MG/ML VIAL ONE (00:56)
[2020-06-25 21:15] LABS: Chlamydia by PCR Not Detected (NotDetected); GC by PCR Not Detected (NotDetected)
== END 2020-06-25 01:39 | disposition home or self-care (01) ==
LOC: ERS 22:05
DX: N39.0 Urinary tract infection, site not specified (principal); M79.7 Fibromyalgia; J45.909 Unspecified asthma, uncomplicated; F17.210 Nicotine dependence, cigarettes, uncomplicated; Z79.51 Long term (current) use of inhaled steroids; Z79.899 Other long term (current) drug therapy
CPT/HCPCS: 36415; 74176; 80053; 81003; 81015; 81025; 84703; 85025; 87480; 87491; 87510; 87591; 87660; 96374; 96375; J1885; J2270; J2405

== ENCOUNTER 2020-07-11 11:51 | Emergency (ER) | payer SELFPAY ==
[2020-07-11 12:37] LABS: #Eosinphils 0.2 thou/uL (0.0-0.7); #Lymphocytes 0.9 thou/uL (1.20-3.40); #Monocytes 0.5 thou/uL (0.11-0.59); #Neutrophils 6.9 thou/uL (1.40-6.50); %Basophils 0.2 % (0.0-1.0); %Eosinophils 2.2 % (0.0-10.0); %Monocytes 5.4 % (0.0-10.0); %Neutrophils 81.2 % (42.0-75.0); Hemoglobin 12.1 g/dL (12.0-16.0); Mean Corpuscular Hemoglobin 32.5 pg (27.0-31.0); Mean Corpuscular Volume 98.6 fL (78.0-98.0); Mean Platelet Volume 8.6 fL (7.4-10.4); Platelet Count 131 thou/uL (130-400); RBC Distribution Width 12.5 % (11.5-14.5); Red Blood Cell (RBC) Count 3.74 mill/uL (4.20-5.40); White Blood Cell (WBC) Count 8.5 thou/uL (4.8-10.8)
--- NOTE | 2020-07-11 12:44 | RAD ---
LEFT ANKLE 3 VIEWS: Date: 07/11/2020 HISTORY: History of multiple falls, injury, dizziness, pain and swelling. FINDINGS: Essentially nondisplaced oblique fracture through the distal fibula. The ankle mortise appears intact . Prominent soft tissue swelling, more focal anteriorly and laterally. IMPRESSION: Oblique essentially nondisplaced distal fibular fracture. Generalized soft tissue fullness and swelli ng. No overt disruption of the ankle mortise. POS: [facility]
[2020-07-11 12:58] LABS: ALT (SGPT) 16 U/L (8-55); AST (SGOT) 9 U/L (5-34); Albumin 3.6 g/dL (3.5-5.0); Alkaline Phosphatase 70 U/L (40-110); Anion Gap 10 mmol/L (10-20); BUN (Urea Nitrogen) 15 mg/dL (7.0-18.7); Bilirubin, Total 0.3 mg/dL (0.2-1.2); Calc. Creatinine Clearance 0 mL/min (70-130); Calcium 8.2 mg/dL (7.8-10.44); Carbon Dioxide 32 mmol/L (22-29); Chloride 105 mmol/L (98-107); Globulin 1.7 g/dL (2.4-3.5); Glucose 100 mg/dL (70-105); Potassium 4.2 mmol/L (3.5-5.1); Protein, Total 5.3 g/dL (6.0-8.3); Sodium 143 mmol/L (136-145)
--- NOTE | 2020-07-11 13:37 | CT ---
BRAIN CT WITHOUT IV CONTRAST: 07/11/20 HISTORY: Injury from multiple falls, concern for CVA, dizziness, lightheadedness. COMPARISON: 06/06/18. FINDINGS: No focal mass or midline shift. No intra or extra-axial hemorrhage. There is some thick fluid/mucus w ithin the right and left maxillary sinuses. The mastoids appear to be clear of acute process. IMPRESSION: No mass, bleed or other significant acute intracranial process. Thick fluid or mucus in both right and left maxillary sinuses. POS: [facility]
[2020-07-11] MEDS ORDERED: Ibuprofen 200 MG TAB ONE (14:12)
[2020-07-11] MEDS ORDERED: HYDROcodone/Acetaminophen 5/325 mg Tablet ONE (14:12)
[2020-07-11 14:15] LABS: Bacteria/HPF 4+ HPF (None Seen); Bilirubin Negative (Negative); Blood, Urine Negative (Negative); Clarity Turbid (Clear); Glucose, Urine (Dipstick) Normal (Negative); Ketone, Urine Negative (Negative); Leukocyte Negative Leu/uL (Negative); Mucous/LPF Rare LPF (<2+); Nitrite 2+ (Negative); Protein, Urine (Dipstick) 20 mg/dL (Neg-Trace); Specific Gravity, Urine 1.022 (1.002-1.036); Squamous Epithelial 21-50 HPF (0-3); Urobilinogen Normal mg/dL (Less than 2)
[2020-07-11 14:23] LABS: Cocaine Metabolite Screen Detected (NotDetected); Medtox Reader # READER 4
[2020-07-11 14:24] LABS: Amphetamine Not Detected (NotDetected); Barbiturates Screen Not Detected (NotDetected); Benzodiazepine Screen Not Detected (NotDetected); Medtox Control Line Valid? VALID (VALID); Methadone Not Detected (NotDetected); Methamphetamine Not Detected (NotDetected); Opiate Screen Detected (NotDetected); Oxycodone Screen Not Detected (NotDetected); Phencyclidine (PCP) Not Detected (NotDetected); THC/Cannabinoid Screen Not Detected (NotDetected); Tricyclic Screen Detected (NotDetected)
[2020-07-11 23:31] LABS: SARS-CoV-2 MS2 Positive; SARS-CoV-2 N Gene Negative; SARS-CoV-2 S Gene Negative; SARS-CoV-2 by NAA Not Detected (NotDetected); SARS-CoV-2 orf1ab Negative
== END 2020-07-11 14:59 | disposition home or self-care (01) ==
LOC: ERS 11:51
DX: S82.831A Other fracture of upper and lower end of right fibula, initial encounter for closed fracture (principal); N39.0 Urinary tract infection, site not specified; M79.7 Fibromyalgia; J45.909 Unspecified asthma, uncomplicated; F17.210 Nicotine dependence, cigarettes, uncomplicated; Z79.51 Long term (current) use of inhaled steroids; Z79.899 Other long term (current) drug therapy; W19.XXXA Unspecified fall, initial encounter
CPT/HCPCS: 29125; 36415; 70450; 80053; 80306; 81003; 81015; 85025; 87635; 93005; U0003

== ENCOUNTER 2020-07-15 09:10 | Inpatient (IN) | payer SELFPAY ==
[2020-07-15 09:55] VITALS: BMI 32.1
[2020-07-15] MEDS: Ketorolac Tromethamine 10 MG TAB PO SCH ×4 (10:33→22:25)
[2020-07-15] MEDS ORDERED: Acetaminophen 325 MG TAB PO PRN (11:44)
[2020-07-15] MEDS ORDERED: HYDROcodone/Acetaminophen 5/325 mg Tablet PO PRN (11:44)
[2020-07-15] MEDS ORDERED: Senokot S 8.6-50 MG TAB PO PRN (11:44)
[2020-07-15] MEDS ORDERED: Ondansetron ODT 4 MG TAB PO PRN (11:44)
[2020-07-15] MEDS ORDERED: cloNIDine 0.1 MG TAB PO PRN (11:46)
--- NOTE | 2020-07-15 12:21 | RAD ---
Radiograph left leg tibia-fibula 2 views: 07/15/2020 11:59 AM HISTORY: 40-year-old female with acute, traumatic left leg pain due to fall. FINDINGS: Visible only on the lateral view, oblique fracture of the distal fibular metaphysis, with mild therapeutic mentor ior displacement of posterior distal fragment, with no angulation and not visible on the AP view. The tibia is intact. Mid and proximal fibula are intact. Leg is in splint. IMPRESSION: Mildly displaced lateral malleolar fracture
[2020-07-15] MEDS ORDERED: Ibuprofen 200 MG TAB PO PRN (12:52)
[2020-07-15 13:20] LABS: #Eosinphils 0.4 thou/uL (0.0-0.7); #Lymphocytes 1.2 thou/uL (1.20-3.40); #Monocytes 0.4 thou/uL (0.11-0.59); #Neutrophils 3.8 thou/uL (1.40-6.50); %Basophils 0.2 % (0.0-1.0); %Lymphocytes 20.9 % (21.0-51.0); %Monocytes 6.4 % (0.0-10.0); %Neutrophils 65.6 % (42.0-75.0); Hemoglobin 12.4 g/dL (12.0-16.0); Mean Corpuscular HGB CONC 34.2 g/dL (32.0-36.0); Mean Corpuscular Hemoglobin 33.2 pg (27.0-31.0); Mean Platelet Volume 8.6 fL (7.4-10.4); Platelet Count 162 thou/uL (130-400); RBC Distribution Width 12.6 % (11.5-14.5); Red Blood Cell (RBC) Count 3.75 mill/uL (4.20-5.40); White Blood Cell (WBC) Count 5.8 thou/uL (4.8-10.8)
[2020-07-15] MEDS ORDERED: hydrALAZINE 20 MG/ML VIAL SLOW IVP PRN (13:43)
[2020-07-15 13:47] LABS: ALT (SGPT) 11 U/L (8-55); AST (SGOT) 11 U/L (5-34); Albumin 3.7 g/dL (3.5-5.0); Alkaline Phosphatase 77 U/L (40-110); Anion Gap 11 mmol/L (10-20); BUN (Urea Nitrogen) 12 mg/dL (7.0-18.7); Bilirubin, Direct 0.2 mg/dL (0.1-0.3); Bilirubin, Total 0.4 mg/dL (0.2-1.2); Calc. Creatinine Clearance 129 mL/min (70-130); Calcium 8.6 mg/dL (7.8-10.44); Carbon Dioxide 28 mmol/L (22-29); Chloride 108 mmol/L (98-107); Glucose 89 mg/dL (70-105); Potassium 3.7 mmol/L (3.5-5.1); Protein, Total 6.1 g/dL (6.0-8.3); Sodium 143 mmol/L (136-145)
[2020-07-15 13:57] LABS: Vitamin D, 25 Hydroxy 18.7 ng/ml (> 30.0)
[2020-07-15] MEDS: Gabapentin 400 MG CAP PO SCH ×2 (14:44→22:26)
--- NOTE | 2020-07-15 15:16 | HP ---
CHIEF COMPLAINT: Leg pain. HISTORY OF PRESENT ILLNESS: A 40-year-old female without significant past medical history other than fibromyalgia, had a fall on [place] with an accident. Two weeks ago, she had a bladder infection treated with antibiotics. X-ray done in the ER showed fibula fracture. She was sent home with followup with [facility]. She is supposed to follow them today, Wednesday. However, because of the swelling and pain, she came back last evening to the ER and being admitted from [facility] to [facility]. During my exam, she states that she did not have any prodromal symptoms prior to fall. Both spouse and the children said she just fell couple of times and there is no twisting of her ankle. She did not have any syncopal episode versus seizure that caused her fall. She is not diabetic. No neuropathy symptoms. No recent change in her weight. She had no recent fever, night sweats, or chills. She was tested for COVID on and it was negative. During the ER visit at [facility], she was satting at 87%, but then improved to 98% on room air. The patient does not use any drugs. She does not drink alcohol. REVIEW OF SYSTEMS: A 13-point review of systems reviewed with the patient and pertinents addressed in the history of present illness. Rest are negative including she did not have any recent productive cough. She was tested on for COVID and it was negative. She denies any chest pain, orthopnea, PND, or lower extremity edema. No nausea, vomiting, abdominal pain, constipation, diarrhea, hematuria, hematochezia, or dysuria. Denies any tingling or numbness in her extremities. No polyuria or polydipsia. No rash. ALLERGIES: SHE IS ALLERGIC TO SULFA, BANANA, AND BACTRIM. MEDICATIONS: She takes; 1. Clonidine 0.1 mg as needed every 8 hours. 2. Gabapentin 800 mg three times a day. 3. Seroquel 100 mg at bedtime. 4. Minipress 5 mg at bedtime. 5. Paroxetine 30 mg daily. 6. Motrin 400 mg every 6 hours as needed. SOCIAL HISTORY: She does not drink alcohol. No illicit drug use. She smokes a pack a day at least for the last 15 years. FAMILY HISTORY: Father had hypertension. Mother had COPD. PHYSICAL EXAMINATION: VITAL SIGNS: Her temperature is 98, pulse 80, blood pressure 166/94, and saturating 97% on room air. GENERAL: She is alert and oriented, in no acute distress. CARDIOVASCULAR: Regular rate and rhythm without murmurs, rubs, or gallops. LUNGS: Clear to auscultation bilaterally without wheezing, rales, or rhonchi. ABDOMEN: Soft, nontender, and nondistended. Good bowel sounds. EXTREMITIES: She has an Chester wrap on her left leg. Otherwise, she is moving her extremities spontaneously other than the left leg. NEUROLOGIC: No focal deficits. Cranial nerves 2 through 12 are grossly intact. Sensation is grossly normal. PSYCHIATRIC: Appropriate mood and affect. LABORATORY DATA: Her CBC is in the normal range. Her rest of the other labs are pending. X-ray of the tibia and fibula showed mildly displaced lateral malleolar fracture, mid and proximal fibula are intact. IMPRESSION AND PLAN: 1. This is a 40-year-old female without significant past medical history other than fibromyalgia, presented with accidental fall leading to left malleolar fracture. The patient is admitted because of the swelling and the pain. We will request Orthopedic for their recommendation. Physical Therapy evaluation and treatment. Pain control and stool softener. 2. Accelerated hypertension, probably due to the pain. We will provide hydralazine as needed. The patient does not have a history of hypertension in the past. 3. Deep venous thrombosis prophylaxis, Lovenox. Job ID: [id number] MTDD
[2020-07-15] MEDS: HYDROcodone/Acetaminophen 5/325 mg Tablet PO PRN ×2 (18:15→22:26)
[2020-07-15] MEDS: Amlodipine 5 MG TAB PO SCH (22:26)
[2020-07-15] MEDS: Prazosin HCl 1 MG CAP PO SCH (22:27)
[2020-07-15] MEDS: Nicotine 14 MG PATCH TD SCH (23:13)
[2020-07-16] MEDS: Ketorolac Tromethamine 10 MG TAB PO SCH ×6 (03:06→21:54)
[2020-07-16] MEDS: HYDROcodone/Acetaminophen 5/325 mg Tablet PO PRN ×3 (03:06→10:28)
[2020-07-16] MEDS: PARoxetine 20 MG TAB PO SCH (05:57)
[2020-07-16] MEDS: Gabapentin 400 MG CAP PO SCH ×3 (05:58→21:56)
[2020-07-16] MEDS: Amlodipine 5 MG TAB PO SCH ×2 (05:58→21:56)
--- NOTE | 2020-07-16 08:45 | CON ---
DATE OF CONSULTATION: REQUESTING PHYSICIAN: Dr. Jeovany Samuels. CONSULTING PHYSICIAN: Dr. Sukumar De La Cruz. REASON FOR CONSULTATION: Left ankle pain. BRIEF CLINICAL HISTORY: Shell is a 40-year-old female, who was admitted by the medicine team yesterday for left ankle pain as well as hypoxia noted on a pulse oximetry which self-corrected. Our service has been consulted for a left distal fibular lateral malleolus fracture, which occurred July 11 from a ground level fall. She has had no prodrome prior to the fall. No loss of consciousness. No constitutional symptoms. She was seen in the emergency room, placed in a stirrup splint and released home that evening. Since the fall, she has had some episodes of pain, which has been increasing and she re-presented to outpatient clinic with complaints of ankle pain and due to the transient episode of hypoxia, she was transferred to [facility], admitted by the medicine team and has had a negative workup to include COVID since then. She has been quarantined since her COVID test and her injury. PAST MEDICAL HISTORY: Significant for hypertension, chronic tobacco use, fibromyalgia. PAST SURGICAL HISTORY: Hysterectomy without oophorectomy. REVIEW OF SYSTEMS: The patient denies any fever, chills, nausea, vomiting, chest pain, dyspnea, or dyspnea on exertion. She denies any constitutional symptoms to include headache, myalgias, diarrhea, changes in bowel or bladder, numbness or tingling. MEDICATIONS: 1. Clonidine. 2. Gabapentin. 3. Seroquel. 4. Minipress. 5. Paroxetine. ALLERGIES: CLAIMS SULFA, BACTRIM, AND BANANA. PHYSICAL EXAMINATION: GENERAL: Moderately obese female appearing her stated age, in no apparent distress or discomfort. She is alert and oriented to person, place, time, and situation. Responsive and appropriate with examiner, appearing well essentially. VITAL SIGNS: Temperature 98.1, pulse 91, respiratory rate 16 and nonlabored, O2 saturations 93% on room air, blood pressure is 111/64. HEENT: Head is normocephalic, atraumatic. Pupils equally round and reactive to light. Oropharynx benign. CHEST: Clear to auscultation. HEART: Regular rate and rhythm. ABDOMEN: Soft, benign. EXTREMITIES: No clubbing, cyanosis, or edema. She does have swelling in a stirrup splint placed over the left lower extremity, which is removed. The skin appears to be intact. I see no fracture blisters or excessive swelling. Tenderness is elicited with palpation along the lateral malleolus. IMAGING STUDIES: Two-view left ankle dated July 11 demonstrates a Fleming B distal fibular fracture with greater than 2 to 3 mm of diastasis best appreciated in the lateral view. IMPRESSION: 1. Transient hypoxia, etiology unknown. This could have been malfunctioning device. 2. Accelerated hypertension, now under better control. 3. Left distal fibular lateral malleolus Fleming B fracture with displacement. PLAN: 1. I talked with Dr. Samuels today by telephone regarding our plans for surgical intervention of this fracture since she is now hospitalized. She is okay with our proceeding and I have also discussed this at great length with the patient. 2. The risks, benefits, options, alternatives, and rationale for proceeding with open reduction and internal fixation of the left distal fibula lateral malleolar fracture has been explained in great detail to the patient. She is ready to proceed. All questions were answered. No guarantee of outcome has been stated or implied. 3. Please see orders. Job ID: [id number]
[2020-07-16] MEDS ORDERED: FLU VACC QS2020-21(6MOS UP)/PF 60 MCG/0.5 ML SYRINGE IM ONE (09:00)
[2020-07-16] MEDS ORDERED: PROPOFOL 200 MG/20 ML VIAL ONE (10:14)
[2020-07-16] MEDS ORDERED: PHENYLEPHRINE-NS 100 MCG/ML 10 ML SYRINGE ONE (10:14)
[2020-07-16] MEDS ORDERED: Dexamethasone 20 MG/5 ML VIAL ONE (10:14)
[2020-07-16] MEDS ORDERED: Ondansetron PF 4 MG/2 ML Vial ONE (10:14)
[2020-07-16] MEDS ORDERED: Lidocaine 1% PF 5 ML VIAL ONE (10:14)
[2020-07-16] MEDS ORDERED: Bupivacaine HCl 0.5%/Epinephrine 1:200,000/PF 30 ml Vial ONE (10:42)
--- NOTE | 2020-07-16 12:33 | PDOC.HOSPP ---
- Subjective Encounter Date: 07/16/20 Encounter Time: 09:10 Subjective: Patient is n.p.o. this morning. I talked to the orthopedic early this morning and plan to go for surgical intervention this afternoon for left malleolus fracture. She does have a hypoxia but that seems to be a chronic one probably due to smoking pack a day. Otherwise her blood pressure looks good afebrile - Objective Vital Signs & Weight: Vital Signs (12 hours) Temp Pulse Resp BP Pulse Ox 07/16/20 11:59 99.0 F 81 12 138/85 92 L 07/16/20 07:44 98.0 F 79 14 109/64 92 L 07/16/20 04:00 98.1 F 91 16 111/64 93 L Weight Weight 181 lb I&O: 07/15/20 07/16/20 07/17/20 06:59 06:59 06:59 Intake Total 1780 Balance 1780 Result Diagrams: 07/15/20 12:57 07/15/20 12:57 Hospitalist ROS - Medication Medications: Active Medications Generic Name Dose Route Start Last Admin Trade Name Freq PRN Reason Stop Dose Admin Hydrocodone Bitart/Acetaminophen 1 tab 07/15/20 13:15 07/16/20 10:28 Hydrocodone/Acetaminophen 5/325 Mg Tablet PO 1 tab Q4H PRN Administration Moderate Pain (4-6) Amlodipine Besylate 5 mg 07/15/20 21:00 07/16/20 05:58 Amlodipine 5 Mg Tab PO 5 mg BID LEELA Administration Clonidine 0.1 mg 07/15/20 11:46 07/15/20 22:30 Clonidine 0.1 Mg Tab PO 0.1 mg Q8H PRN Administration Anxiety Gabapentin 800 mg 07/15/20 15:00 07/16/20 05:58 Gabapentin 400 Mg Cap PO 800 mg TID LEELA Administration Hydralazine HCl 10 mg 07/15/20 13:43 07/15/20 18:10 Hydralazine 20 Mg/Ml Vial SLOW IVP 10 mg Q4H PRN Administration Blood Pressure Ketorolac Tromethamine 10 mg 07/15/20 10:00 07/16/20 10:27 Ketorolac Tromethamine 10 Mg Tab PO 07/20/20 10:01 10 mg Q4H LEELA Administration Nicotine 14 mg 07/15/20 23:00 07/15/20 23:13 Nicotine 14 Mg Patch TD 14 mg Q24HR LEELA Administration Paroxetine HCl 30 mg 07/16/20 09:00 07/16/20 05:57 Paroxetine 20 Mg Tab PO 30 mg DAILY LEELA Administration Prazosin HCl 5 mg 07/15/20 21:00 07/15/20 22:27 Prazosin Hcl 1 Mg Cap PO 5 mg HS LEELA Administration Quetiapine Fumarate 100 mg 07/15/20 21:00 07/15/20 22:26 Quetiapine Fumarate 100 Mg Tab PO 100 mg HS LEELA Administration - Exam General Appearance: NAD, awake alert Eye: PERRL ENT: normocephalic atraumatic Neck: supple Heart: RRR Respiratory: CTAB, normal chest expansion Gastrointestinal: soft, normal bowel sounds Neurological: cranial nerve grossly intact Musculoskeletal - other findings: Left malleolar fracture Psychiatric: normal affect, A&O x 3 Hosp A/P - Plan Fall Left malleolar fracture -Orthopedic intervention this afternoon -Patient n.p.o. for Accelerated hypertension Due to pain and possibly underlying untreated hypertension -Started her on a low-dose Norvasc and seems to be helping. Hypoxia probably secondary to active smoking And she has been tested for Covid on and that was negative. -We will follow closely postop Her TSH in the normal range Bone fracture is an accidental -Calcium in the normal range. She does have vitamin D deficiency as well as folic acid. -He was supplements History of fibromyalgia -She is on gabapentin Paxil as well as Seroquel which are continued.
[2020-07-16] MEDS ORDERED: Fentanyl 100 MCG/2 ML VIAL ONE ×2 (14:21→15:32)
[2020-07-16] MEDS ORDERED: Midazolam HCl 2 mg/2 ml Vial ONE (14:21)
--- NOTE | 2020-07-16 16:51 | OP ---
DATE OF PROCEDURE: 07/16/2020 OPERATION PERFORMED: Open reduction and internal fixation of left ankle fracture with syndesmosis repair. PREOPERATIVE DIAGNOSIS: Left distal fibular fracture with disrupted syndesmosis. POSTOPERATIVE DIAGNOSIS: Left distal fibular fracture with disrupted syndesmosis. COMPLICATIONS: None. ESTIMATED BLOOD LOSS: Minimal. VALET CASHIER: Rosa Resendez PA-C. IMPLANTS: Synthes 5-hole one-third tubular plate with a 4.0 syndesmosis screw. INDICATIONS: Ms. Otto is a 40-year-old female who has fallen and fractured her left ankle. She has been indicated for open reduction and internal fixation of the ankle to restore anatomic alignment and promote healing and prevent complications. Risks have been reviewed in detail. She wants to proceed with the operation. DESCRIPTION OF PROCEDURE: Ms. Otto was identified in the preoperative holding area. Her correct extremity was marked. She was carried to the operating room. She was positioned supine. General anesthesia was induced. A multidisciplinary time-out was performed. The left lower extremity was prepped and draped in the sterile fashion. We began the procedure with a lateral approach to the fibula. We dissected down through the subcutaneous tissues to the fascia overlying the bone. The bone was exposed and the underlying fracture was exposed. We were able to clear the bony edges. At this point, we proceeded to reduce the fracture. We pulled traction on the bone and clamped the bone. At this point, we took x-rays, confirming we had a reduced fracture. We then applied a 5-hole one-third tubular plate along the lateral cortex. We placed screws proximally and distally, locking the plate to the bone. Finally, we took a stress view x-ray. The ankle mortise did widen and there was no overlap of the fibula with the tibia. We decided to place a syndesmosis screw. The Fleming clamp was placed with a dorsiflexed position. We then used intraoperative x-ray to place our syndesmosis screw by drilling and then placing our 4.0 screw. At this point, a final image was taken. We thoroughly irrigated with copious lavage. We then closed with 0 Vicryl suture followed by 2-0 Vicryl suture, and nylon for the skin. A sterile dressing was applied and a splint was placed. The patient was taken to the recovery room in good condition. The registered sales assistant surgeon was responsible for positioning the patient, preparing the injured extremity, applying the tourniquet, and assisting in preparation for surgery. The registered sales assistant was instrumental in reducing the injured limb by applying traction and reduction maneuvers as well as holding retractors and reduction tools. The registered sales assistant also was instrumental in assisting in exposure throughout the operation using appropriate retractors. The registered sales assistant participated in closure of the operative site as well as dressing application and splint application. Job ID: [id number]
[2020-07-16] MEDS ORDERED: Promethazine HCl 25 MG/ML VIAL SLOW IVP PRN (16:56)
[2020-07-16] MEDS ORDERED: Ondansetron HCl/PF 4 MG/2 ML Vial IVP PRN (16:56)
[2020-07-16] MEDS ORDERED: HYDROmorphone 2 MG/ML VIAL SLOW IVP PRN (16:56)
[2020-07-16] MEDS ORDERED: Promethazine HCl 25 MG/ML VIAL IM PRN (16:56)
[2020-07-16] MEDS ORDERED: Morphine Sulfate 2 MG/ML SYRINGE SLOW IVP PRN (16:56)
--- NOTE | 2020-07-16 19:42 | RAD ---
PREOPERATIVE IMAGING OF THE LEFT ANKLE: 07/16/20 COMPARISON: 07/15/20. HISTORY: Fracture status post ORIF. FINDINGS: Four intraoperative images demonstrate placement of lateral screw and plate fixation associated with the distal fibula. The superior screw traverses the distal tibial shaft as well. IMPRESSION: ORIF as detailed above. POS: [facility]
[2020-07-16] MEDS: Nicotine 14 MG PATCH TD SCH (21:54)
[2020-07-16] MEDS: Prazosin HCl 1 MG CAP PO SCH (21:55)
[2020-07-16] MEDS ORDERED: CEFAZOLIN 2 GM in Premix Bag 1 BAG IVPB SCH (22:00)
[2020-07-17] MEDS: CEFAZOLIN 2 GM in Premix Bag 1 BAG IVPB SCH ×2 (00:03→10:18)
[2020-07-17] MEDS: HYDROcodone/Acetaminophen 5/325 mg Tablet PO PRN ×2 (00:40→11:31)
[2020-07-17] MEDS: Ketorolac Tromethamine 10 MG TAB PO SCH ×4 (03:54→13:20)
[2020-07-17] MEDS ORDERED: Folic Acid/Vit B Comp W-C PO SCH (09:00)
[2020-07-17] MEDS ORDERED: Cholecalciferol 1,000 UNITS (25 MCG) TAB PO SCH (09:00)
[2020-07-17] MEDS: Gabapentin 400 MG CAP PO SCH ×2 (10:14→14:44)
[2020-07-17] MEDS: Amlodipine 5 MG TAB PO SCH (10:17)
[2020-07-17] MEDS: PARoxetine 20 MG TAB PO SCH (10:18)
[2020-07-17 10:54] LABS: #Monocytes 0.5 thou/uL (0.11-0.59); %Basophils 0.2 % (0.0-1.0); %Eosinophils 0.2 % (0.0-10.0); %Lymphocytes 7.4 % (21.0-51.0); %Monocytes 3.3 % (0.0-10.0); %Neutrophils 88.9 % (42.0-75.0); Hemoglobin 11.8 g/dL (12.0-16.0); Mean Corpuscular HGB CONC 34.3 g/dL (32.0-36.0); Mean Corpuscular Hemoglobin 33.1 pg (27.0-31.0); Mean Corpuscular Volume 96.5 fL (78.0-98.0); Mean Platelet Volume 5.6 fL (7.4-10.4); Platelet Count 171 thou/uL (130-400); RBC Distribution Width 12.6 % (11.5-14.5); Red Blood Cell (RBC) Count 3.55 mill/uL (4.20-5.40); White Blood Cell (WBC) Count 13.5 thou/uL (4.8-10.8)
[2020-07-17 11:11] LABS: Anion Gap 15 mmol/L (10-20); BUN (Urea Nitrogen) 21 mg/dL (7.0-18.7); Calc. Creatinine Clearance 122 mL/min (70-130); Calcium 8.8 mg/dL (7.8-10.44); Carbon Dioxide 22 mmol/L (22-29); Chloride 109 mmol/L (98-107); Glucose 176 mg/dL (70-105); Potassium 3.9 mmol/L (3.5-5.1)
[2020-07-17 11:16] LABS: Sodium 142 mmol/L (136-145)
[2020-07-17 11:42] VITALS: BP 129/58; TEMP 98.1
--- NOTE | 2020-07-17 11:48 | PDOC.DS.DS ---
Provider - Provider Date of Admission: 07/16/20 10:11 Admitting Provider: Keenan Gilman MD Primary Care Physician: Virginia Rankin MD Course - Hospital Course Hospital Course: 40-year-old female presented with Fall Left malleolar fracture Status post open reduction and internal fixation of left ankle fracture. Accelerated hypertension Due to pain and possibly underlying untreated hypertension -Started her on a low-dose Norvasc and seems to be helping. Hypoxia probably secondary to active smoking And she has been tested for Covid on and that was negative. Her TSH in the normal range Bone fracture is an accidental -Calcium in the normal range. She does have vitamin D deficiency as well as folic acid. -He was supplements History of fibromyalgia -She is on gabapentin Paxil as well as Seroquel which are continued. Vitamin D as well as folate deficiency -Prescription for supplements given. And she needs to follow-up with the primary care physician and repeat vitamin D D level in 2 months. Discharge time over 30 minutes Resuscitation Status: 07/15/20 11:44 Resuscitation Status Routine Resuscitation Status: FULL: Full Resuscitation - Labs Lab Results: 07/17/20 10:23 07/17/20 10:23 Abnormal Lab Results - Last 48 hrs 07/15/20 12:57: Chloride 108 H 07/15/20 12:57: RBC 3.75 L, MCH 33.2 H, Lymphocytes % 20.9 L 07/15/20 13:00: Folate 6.50 L 07/15/20 13:00: 25-OH Vitamin D Total 18.7 L 07/17/20 10:23: Chloride 109 H, BUN 21 H 07/17/20 10:23: WBC 13.5 H, RBC 3.55 L, Hgb 11.8 L, Hct 34.2 L, MCH 33.1 H, MPV 5.6 L, Neutrophils % 88.9 H, Lymphocytes % 7.4 L, Neutrophils # 12.0 H, Lymphocytes # 1.0 L - Physical Exam Vitals: Vital Signs (12 hours) Temp Pulse Resp BP Pulse Ox 07/17/20 11:41 98.1 F 96 16 129/58 L 97 07/17/20 07:50 98.3 F 87 16 145/74 H 95 07/17/20 04:00 98.0 F 89 16 129/76 91 L Weight Admit Weight 181 lb Weight 181 lb Physical Exam: The patient was seen and examined on the day of discharge. Patient seen this morning. She appears comfortable discharge plan discussed agreeable. A rolling walker prescription given. Plan - Discharge Medications Home Medications: Medication Instructions Recorded Confirmed Type Prazosin HCl [Minipress] 5 mg PO HS 01/26/19 07/15/20 History Ibuprofen [Motrin] 400 mg PO Q6HR PRN #30 tab 01/28/19 07/15/20 Rx Cephalexin [Keflex] 500 mg PO TID 07/15/20 07/15/20 History Gabapentin 800 mg PO TID 07/15/20 07/15/20 History Paroxetine HCl [PARoxetine HCl] 30 mg PO DAILY 07/15/20 07/15/20 History QUEtiapine Fumarate [SEROquel] 100 mg PO HS 07/15/20 07/15/20 History cloNIDine [Catapres] 0.1 mg PO Q8H PRN 07/15/20 07/15/20 History Allergies: Sulfa (Sulfonamide Antibiotics) Allergy (Severe, Verified 10/09/19 04:52) Anaphylaxis risperidone [From Risperdal] Allergy (Intermediate, Verified 10/09/19 04:52) Swollen Lips trimethoprim [From Bactrim] Allergy (Mild, Verified 10/09/19 04:52) Anaphylaxis banana Allergy (Verified 10/09/19 04:52) sulfamethoxazole [From Bactrim] Allergy (Verified 10/09/19 04:52) Anaphylaxis - Discharge Instructions Discharge Instructions:: PCP follow-up in 1 week Follow-up with Dr. De La Cruz per their clinic appointment as needed. Activity:: Activity as Tolerated Nourishment:: Regular Diet - Follow up Plan Referrals: Virginia Rankin MD [Primary Care Provider] - Disposition: HOME Quality - Care Measures CORE MEASURES:: N/A
--- NOTE | 2020-07-19 23:02 | PQF ---
CLINICAL DOCUMENTATION CLARIFICATION FORM: Dear : Max Marsh Date / Time: 07/19/2020 Please exercise your independent, professional judgment in responding to the clarification form. Clinical indicators are provided on the bottom of this form for your review Please check appropriate box(es): [ ] Hypoglycemia [ ] Insignificant lab value [ ] Other diagnosis [ ] Unable to determine In addition, please specify: Present on Admission (POA): [ ] Yes [ ] No [ ] Unable to determine To be completed by CDI/Coding staff for physician review: Present Clinical Indicators - Signs / Symptoms / Labs Results and Location in Medical Record [ x ] Glucose values were 54 and 52 Laboratory [ x ] Pre-term delivery, 36.6 weeks for placental abruption Progress note 07/14 Present Risk Factors Results and Location in Medical Record [ x ] Pre-term for placental abruption, materal pre-eclampsia and born via delivery Progress note 07/14 Present Treatments Results and Location in Medical Record [ x ] Daily chemistry labs Laboratory CDS/Physician Non Invasive Cardiologist Signature: [id number] Phone #: Date/Time: 07/19/2020 This is a permanent part of the Medical Record [facility]
[2020-07-20] MEDS ORDERED: Ibuprofen 200 MG TAB PO PRN (18:00)
== END 2020-07-17 15:02 | disposition home or self-care (01) | DRG 494 ==
LOC: 2SE 09:10 → INTOOBSV 09:10 → OBSVTOIN 07-16 10:11
PROVIDERS: ADMIT Internal Medicine; ATTEND Internal Medicine
PROC: 0QSK04Z Reposition Left Fibula with Internal Fixation Device, Open Approach (ICD-10-PCS; principal; 2020-07-16)
DX: S82.62XA Displaced fracture of lateral malleolus of left fibula, initial encounter for closed fracture (principal); I10 Essential (primary) hypertension; M79.7 Fibromyalgia; W19.XXXA Unspecified fall, initial encounter; E55.9 Vitamin D deficiency, unspecified; E53.8 Deficiency of other specified B group vitamins; R09.02 Hypoxemia; Z88.1 Allergy status to other antibiotic agents; Z88.2 Allergy status to sulfonamides; Z91.018 Allergy to other foods; Z90.710 Acquired absence of both cervix and uterus
CPT/HCPCS: 36415; 76000; 80048; 80076; 82306; 82607; 82746; 84443; 85025; 90471; 90662; 90732; 96374; C1713; G0008; G0009; G0378; J0360; J0690; J1100; J2250; J2405; J2704; J3010

== ENCOUNTER 2020-08-27 12:51 | Emergency (ER) | payer SELFPAY ==
[2020-08-27] MEDS ORDERED: Naloxone HCl 0.4 mg/ml Vial ONE (13:31)
--- NOTE | 2020-08-27 13:50 | RAD ---
XR Chest 1 View Portable HISTORY: Altered mental status COMPARISON: 07/14/2020 FINDINGS: The heart size is normal. The lungs are well expanded without focal areas of consolidation, pneumothorax or pleural effusions. IMPRESSION: No radiographic evidence of acute cardiopulmonary process.
--- NOTE | 2020-08-27 13:58 | CT ---
CT BRAIN WITHOUT CONTRAST: HISTORY: Altered mental status COMPARISON: 07/11/2020 FINDINGS: No evidence of acute infarct, hemorrhage, midline shift or abnormal extra-axial fluid collections is seen. The ventricular size is appropriate and the basilar cisterns are patent. The bony calvarium is intact. The mastoid air cells are well aerated. There is mild mucosal disease in the paranasal sin uses. IMPRESSION: No CT evidence of acute intracranial process.
[2020-08-27 14:44] LABS: #Eosinphils 0.2 thou/uL (0.0-0.7); #Lymphocytes 1.5 thou/uL (1.20-3.40); #Monocytes 0.3 thou/uL (0.11-0.59); #Neutrophils 3.3 thou/uL (1.40-6.50); %Basophils 0.6 % (0.0-1.0); %Lymphocytes 28.4 % (21.0-51.0); %Monocytes 6.2 % (0.0-10.0); %Neutrophils 60.9 % (42.0-75.0); Hemoglobin 11.8 g/dL (12.0-16.0); Mean Corpuscular HGB CONC 34.3 g/dL (32.0-36.0); Mean Corpuscular Hemoglobin 32.2 pg (27.0-31.0); Mean Corpuscular Volume 93.7 fL (78.0-98.0); Mean Platelet Volume 8.7 fL (7.4-10.4); Platelet Count 152 thou/uL (130-400); RBC Distribution Width 11.9 % (11.5-14.5); Red Blood Cell (RBC) Count 3.66 mill/uL (4.20-5.40); White Blood Cell (WBC) Count 5.4 thou/uL (4.8-10.8)
[2020-08-27 14:50] LABS: BHCG - Serum Negative (NEGATIVE); Pregs Control Background? CLEAR/WHITE (CLR/WHITE); Pregs Control Bar Appear? YES (CONTROL BAR)
[2020-08-27 15:05] LABS: ALT (SGPT) 12 U/L (8-55); AST (SGOT) 8 U/L (5-34); Acetaminophen Less than 6.0 mcg/mL (10.0-30.0); Albumin 3.4 g/dL (3.5-5.0); Alcohol Less than 10 mg/dL (Less than 10); Alkaline Phosphatase 82 U/L (40-110); Anion Gap 12 mmol/L (10-20); BUN (Urea Nitrogen) 25 mg/dL (7.0-18.7); Bilirubin, Total 0.3 mg/dL (0.2-1.2); Calc. Creatinine Clearance 0 mL/min (70-130); Calcium 8.2 mg/dL (7.8-10.44); Carbon Dioxide 25 mmol/L (22-29); Chloride 108 mmol/L (98-107); Globulin 2.1 g/dL (2.4-3.5); Glucose 98 mg/dL (70-105); Magnesium 2.1 mg/dL (1.6-2.6); Potassium 3.4 mmol/L (3.5-5.1); Protein, Total 5.5 g/dL (6.0-8.3); Salicylate Less than 8.0 mg/dL (15.0-30.0); Sodium 142 mmol/L (136-145)
[2020-08-27] MEDS ORDERED: Acetaminophen 325 MG TAB ONE (15:25)
[2020-08-27 16:01] LABS: Bacteria/HPF 2+ HPF (None Seen); Bilirubin Negative (Negative); Blood, Urine Negative (Negative); Clarity Turbid (Clear); Glucose, Urine (Dipstick) Normal (Negative); Ketone, Urine Negative (Negative); Leukocyte 25 Leu/uL (Negative); Nitrite 2+ (Negative); Protein, Urine (Dipstick) Negative (Neg-Trace); RBC/HPF 0-3 HPF (0-3); Squamous Epithelial 0-3 HPF (0-3); Urobilinogen Normal mg/dL (Less than 2); WBC/HPF 0-3 HPF (0-3)
[2020-08-27 16:07] LABS: Medtox Reader # READER 4
[2020-08-27 16:10] LABS: Amphetamine Detected (NotDetected); Barbiturates Screen Not Detected (NotDetected); Benzodiazepine Screen Not Detected (NotDetected); Cocaine Metabolite Screen Detected (NotDetected); Medtox Control Line Valid? VALID (VALID); Methadone Not Detected (NotDetected); Methamphetamine Detected (NotDetected); Opiate Screen Detected (NotDetected); Oxycodone Screen Not Detected (NotDetected); Phencyclidine (PCP) Not Detected (NotDetected); THC/Cannabinoid Screen Not Detected (NotDetected); Tricyclic Screen Detected (NotDetected)
[2020-08-27] MEDS ORDERED: cefTRIAXone\\ROCEPHIN 1 GM VIAL ONE (17:12)
== END 2020-08-27 17:25 | disposition home or self-care (01) ==
LOC: ERS 12:51
DX: R41.82 Altered mental status, unspecified (principal); E86.0 Dehydration; N39.0 Urinary tract infection, site not specified; J45.909 Unspecified asthma, uncomplicated; M79.7 Fibromyalgia; F17.210 Nicotine dependence, cigarettes, uncomplicated; Z79.51 Long term (current) use of inhaled steroids; Z79.899 Other long term (current) drug therapy
CPT/HCPCS: 36415; 70450; 71045; 80053; 80306; 80307; 81003; 81015; 83605; 83735; 84484; 84703; 85025; 87077; 87086; 87186; 93005; 96374; 96375; J0696; J2310

== ENCOUNTER 2020-11-25 12:19 | Emergency (ER) | payer OTHER, SELFPAY ==
[2020-11-25] MEDS ORDERED: Morphine 4 MG/ML VIAL ONE (13:19)
== END 2020-11-25 15:57 | disposition home or self-care (01) ==
LOC: ERS 12:19
DX: T71.193A Asphyxiation due to mechanical threat to breathing due to other causes, assault, initial encounter (principal); I77.71 Dissection of carotid artery; S50.12XA Contusion of left forearm, initial encounter; S00.83XA Contusion of other part of head, initial encounter; S00.33XA Contusion of nose, initial encounter; Y04.8XXA Assault by other bodily force, initial encounter; Z79.899 Other long term (current) drug therapy; J45.909 Unspecified asthma, uncomplicated; F17.210 Nicotine dependence, cigarettes, uncomplicated
CPT/HCPCS: 70450; 70486; 70498; 71046; 96374; J2270

== ENCOUNTER 2020-12-03 08:33 | Emergency (ER) | payer SELFPAY ==
[2020-12-03] MEDS ORDERED: Aspirin Chewable 81 MG TAB ONE (09:16)
[2020-12-03] MEDS ORDERED: Ondansetron PF 4 MG/2 ML Vial ONE (09:16)
[2020-12-03] MEDS ORDERED: Morphine 4 MG/ML VIAL ONE (09:16)
[2020-12-03 09:32] LABS: #Basophils 0.1 thou/uL (0.0-0.2); #Eosinphils 0.5 thou/uL (0.0-0.7); #Monocytes 0.6 thou/uL (0.11-0.59); #Neutrophils 5.9 thou/uL (1.40-6.50); %Basophils 0.6 % (0.0-1.0); %Eosinophils 5.7 % (0.0-10.0); %Lymphocytes 21.8 % (21.0-51.0); %Monocytes 6.6 % (0.0-10.0); %Neutrophils 65.3 % (42.0-75.0); Hemoglobin 12.4 g/dL (12.0-16.0); Mean Corpuscular HGB CONC 32.6 g/dL (32.0-36.0); Mean Corpuscular Hemoglobin 32.3 pg (27.0-31.0); Mean Corpuscular Volume 99.1 fL (78.0-98.0); Platelet Count 200 thou/uL (130-400); RBC Distribution Width 11.9 % (11.5-14.5); Red Blood Cell (RBC) Count 3.84 mill/uL (4.20-5.40)
[2020-12-03 09:55] LABS: ALT (SGPT) 20 U/L (8-55); AST (SGOT) 11 U/L (5-34); Albumin 3.4 g/dL (3.5-5.0); Alkaline Phosphatase 107 U/L (40-110); Anion Gap 12 mmol/L (10-20); BUN (Urea Nitrogen) 18 mg/dL (7.0-18.7); Bilirubin, Total 0.2 mg/dL (0.2-1.2); Calc. Creatinine Clearance 0 mL/min (70-130); Calcium 8.8 mg/dL (7.8-10.44); Carbon Dioxide 24 mmol/L (22-29); Chloride 108 mmol/L (98-107); Globulin 2.1 g/dL (2.4-3.5); Glucose 107 mg/dL (70-105); Potassium 3.8 mmol/L (3.5-5.1); Protein, Total 5.5 g/dL (6.0-8.3); Sodium 140 mmol/L (136-145)
[2020-12-03] MEDS ORDERED: Iopamidol-370 76% 500 ML 1 ML ONE (09:59)
[2020-12-03 12:49] LABS: Troponin I Less than 0.010 ng/mL (< 0.028)
== END 2020-12-03 14:00 | disposition left against medical advice (07) ==
LOC: ERS 08:33
DX: I77.71 Dissection of carotid artery (principal); I77.79 Dissection of other specified artery; J44.9 Chronic obstructive pulmonary disease, unspecified; Z79.899 Other long term (current) drug therapy
CPT/HCPCS: 36415; 71045; 71275; 74174; 80053; 83880; 84484; 84702; 85025; 93005; 96374; 96375; J2270; J2405; Q9967

== ENCOUNTER 2021-01-23 16:51 | Emergency (ER) | payer SELFPAY ==
[2021-01-23] MEDS ORDERED: diphenhydrAMINE 50 MG/ML VIAL ONE (17:34)
[2021-01-23] MEDS ORDERED: methylPREDNISolone Sod Succ/PF 125 MG/2 ML VIAL ONE (17:34)
[2021-01-23] MEDS ORDERED: Ketorolac Tromethamine 30 MG/ML VIAL ONE (17:34)
[2021-01-23] MEDS ORDERED: Metoclopramide HCl 10 MG/2 ML VIAL ONE (17:34)
[2021-01-23 17:48] LABS: #Eosinphils 0.5 thou/uL (0.0-0.7); #Lymphocytes 2.2 thou/uL (1.20-3.40); #Monocytes 0.4 thou/uL (0.11-0.59); %Basophils 0.6 % (0.0-1.0); %Eosinophils 6.4 % (0.0-10.0); %Lymphocytes 26.7 % (21.0-51.0); %Monocytes 4.9 % (0.0-10.0); %Neutrophils 61.4 % (42.0-75.0); Hemoglobin 13.4 g/dL (12.0-16.0); Mean Corpuscular HGB CONC 35.5 g/dL (32.0-36.0); Mean Corpuscular Hemoglobin 34.2 pg (27.0-31.0); Mean Corpuscular Volume 96.4 fL (78.0-98.0); Mean Platelet Volume 8.8 fL (7.4-10.4); Platelet Count 200 thou/uL (130-400); RBC Distribution Width 12.3 % (11.5-14.5); Red Blood Cell (RBC) Count 3.92 mill/uL (4.20-5.40); White Blood Cell (WBC) Count 8.1 thou/uL (4.8-10.8)
[2021-01-23 18:12] LABS: ALT (SGPT) 11 U/L (8-55); AST (SGOT) 10 U/L (5-34); Albumin 4.1 g/dL (3.5-5.0); Alkaline Phosphatase 91 U/L (40-110); Anion Gap 14 mmol/L (10-20); BUN (Urea Nitrogen) 23 mg/dL (7.0-18.7); Bilirubin, Total 0.2 mg/dL (0.2-1.2); Calc. Creatinine Clearance 0 mL/min (70-130); Calcium 9.4 mg/dL (7.8-10.44); Carbon Dioxide 23 mmol/L (22-29); Chloride 106 mmol/L (98-107); Globulin 2.7 g/dL (2.4-3.5); Glucose 119 mg/dL (70-105); Potassium 4.4 mmol/L (3.5-5.1); Protein, Total 6.8 g/dL (6.0-8.3); Sodium 139 mmol/L (136-145)
== END 2021-01-23 18:55 | disposition short-term general hospital (02) ==
LOC: ERS 16:51
DX: R51.9 Headache, unspecified (principal); R20.2 Paresthesia of skin; I77.71 Dissection of carotid artery; H54.40 Blindness, one eye, unspecified eye; J45.909 Unspecified asthma, uncomplicated; F17.210 Nicotine dependence, cigarettes, uncomplicated; Z87.442 Personal history of urinary calculi; Z79.899 Other long term (current) drug therapy
CPT/HCPCS: 70450; 80053; 85025; 96365; 96375; J1200; J1885; J2765; J2930

== ENCOUNTER 2021-03-28 02:03 | Emergency (ER) | payer SELFPAY | END 2021-03-28 02:42 | disposition home or self-care (01) | LOC: ERS 02:03 | DX: U07.1 COVID-19 (principal); J45.909 Unspecified asthma, uncomplicated; F17.210 Nicotine dependence, cigarettes, uncomplicated | CPT/HCPCS: 99284 ==

== ENCOUNTER 2021-07-15 11:38 | Emergency (ER) | payer SELFPAY ==
[2021-07-15 12:19] LABS: #Eosinphils 0.3 thou/uL (0.0-0.7); #Lymphocytes 1.9 thou/uL (1.20-3.40); #Monocytes 0.4 thou/uL (0.11-0.59); #Neutrophils 5.3 thou/uL (1.40-6.50); %Basophils 0.6 % (0.0-1.0); %Eosinophils 3.8 % (0.0-10.0); %Lymphocytes 23.5 % (21.0-51.0); %Monocytes 4.8 % (0.0-10.0); %Neutrophils 67.3 % (42.0-75.0); Hemoglobin 14.9 g/dL (12.0-16.0); Mean Corpuscular HGB CONC 34.6 g/dL (32.0-36.0); Mean Corpuscular Hemoglobin 32.6 pg (27.0-31.0); Mean Corpuscular Volume 94.3 fL (78.0-98.0); Mean Platelet Volume 7.9 fL (7.4-10.4); Platelet Count 217 thou/uL (130-400); RBC Distribution Width 12.7 % (11.5-14.5); Red Blood Cell (RBC) Count 4.58 mill/uL (4.20-5.40); White Blood Cell (WBC) Count 7.9 thou/uL (4.8-10.8)
[2021-07-15 12:49] LABS: Anion Gap 11 mmol/L (10-20); BUN (Urea Nitrogen) 13 mg/dL (7.0-18.7); Calc. Creatinine Clearance 0 mL/min (70-130); Carbon Dioxide 24 mmol/L (22-29); Chloride 107 mmol/L (98-107); Potassium 4.3 mmol/L (3.5-5.1); Sodium 138 mmol/L (136-145)
[2021-07-15 12:50] LABS: ALT (SGPT) 18 U/L (8-55); AST (SGOT) 11 U/L (5-34); Albumin 4.3 g/dL (3.5-5.0); Alkaline Phosphatase 83 U/L (40-110); Bilirubin, Total 0.4 mg/dL (0.2-1.2); Calcium 9.7 mg/dL (7.8-10.44); Globulin 2.8 g/dL (2.4-3.5); Glucose 117 mg/dL (70-105); Protein, Total 7.1 g/dL (6.0-8.3)
[2021-07-15 13:11] LABS: CKMB 1.2 ng/mL (0-6.6)
== END 2021-07-15 16:30 | disposition home or self-care (01) ==
LOC: ERS 11:38
DX: R07.9 Chest pain, unspecified (principal); J45.909 Unspecified asthma, uncomplicated; F17.210 Nicotine dependence, cigarettes, uncomplicated
CPT/HCPCS: 36415; 71045; 80053; 82553; 84484; 85025; 93005